=== PATIENT | female | born 1935 | race Caucasian/White ===

== ENCOUNTER → 2019-02-10 | Outpatient (CLI) | payer MEDICARE ==
[~2019-02-10] MED LIST: ASCO-262 PO; CALC-78 PO; MV-M1TAB57 PO; SERT25TA5 PO
[2019-02-10 10:51] LABS: BUN/CREATININE RATIO 18; CREATININE SERUM 0.73 MG/DL (0.60-1.30); GFR ESTIMATED > 60
--- NOTE | 2019-02-10 11:50 | NUR ---
SPO2 DROPPED TO 88% ON ROOM AIR WITH EXERTION. PLACED PT ON O2 @ 2 LPM AND WALKED FOR 2 MORE MINUTES. SPO2 STAYED ABOVE 90% WITH OXYGEN.
[2019-02-10 11:53] LABS: ABG BASE EXCESS 3.2 MMOL/L (-2.5-2.5); ABG OXYGEN SATURATION 95 % (94-100); ABG PCO2 40 MMHG (35-45); ABG PH 7.44 (7.37-7.43); ABG PO2 68 MMHG (79-93); ABG TCO2 28.7 MMOL/L (21.0-31.0)
[2019-02-10 12:00] LABS: ALLENS TEST YES-POS; INSPIRED O2 0; PATIENT TEMP 95.9; VENTILATOR NO
== END ==
LOC: RT 10:20
PROVIDERS: ATTEND Nurse Practitioner Family
DX: R06.00 Dyspnea, unspecified (principal); J30.9 Allergic rhinitis, unspecified; R06.89 Other abnormalities of breathing; R05 Cough; R91.8 Other nonspecific abnormal finding of lung field; R63.4 Abnormal weight loss
CPT/HCPCS: 36415; 36600; 82565; 82805; 84520

== ENCOUNTER → 2019-02-10 | Outpatient (CLI) | payer MEDICARE ==
[~2019-02-10] MED LIST changes: -ASCO-262 PO; -CALC-78 PO; +HOLD METFORMIN - RECEIVED CONTRAST 20 ML VIAL IV SCH; +IOHEXOL 350 MG/ML 100 ML (OMNIPAQUE 350) VIAL IV ONE; -MV-M1TAB57 PO; -SERT25TA5 PO
--- NOTE | 2019-02-10 14:45 | Diagnostic Imaging Report ---
PROCEDURE: CT chest with contrast only. TECHNIQUE: Multiple contiguous axial images were obtained through the chest after administration of intravenous contrast. Auto Exposure Controls were utilized during the CT exam to meet ALARA standards for radiation dose reduction. INDICATION: Dyspnea, cough and shortness of air. COMPARISON: No prior studies are available for comparison. FINDINGS: No axillary lymphadenopathy is seen. No definite hilar or mediastinal lymphadenopathy is detected. No pericardial or pleural fluid is identified. There are centrilobular emphysematous changes in the upper lobes. There is a small density in the medial left upper lobe, image 20, measuring approximately 10 mm x 5 mm. Circumscribed noncalcified nodule in the left lower lobe is noted, image 28, measuring 13 mm. Tiny nodule in the lingula is seen measuring 5 mm. No other parenchymal nodules are identified. Upper abdomen does show low density in the left lobe of the liver measuring 14 mm. Upper abdomen is otherwise unremarkable. Thoracic spine does show several compression fracture deformities in the mid thoracic spine, age indeterminate. IMPRESSION: 1. No thoracic lymphadenopathy is detected. 2. Centrilobular emphysematous changes. 3. Nodular densities, largest left lower lobe, indeterminate. PET scan to evaluate the left lower lobe nodule would be useful for further evaluation. If no additional imaging is performed, close followup with repeat study in three to six months is recommended to confirm stability. Dictated by: Dictated on workstation # [id number]
== END ==
LOC: RAD 13:37 → EDUNIT# 14:45
PROVIDERS: ATTEND Nurse Practitioner Family
DX: J43.2 Centrilobular emphysema (principal); J30.9 Allergic rhinitis, unspecified; J98.4 Other disorders of lung; R63.4 Abnormal weight loss
CPT/HCPCS: 71260

== ENCOUNTER 2019-02-17 07:01 | Outpatient (CLI) | payer MEDICARE ==
[~2019-02-17] VITALS: Ht 157.5 cm; Wt 59.0 kg
[2019-02-17] MEDS ORDERED: MV-M1TAB57 PO (12:13)
[2019-02-17] MEDS ORDERED: SERT25TA5 PO (12:13)
[2019-02-17] MEDS ORDERED: CALC-78 PO (12:13)
[2019-02-17] MEDS ORDERED: ASCO-262 PO (12:13)
== END 2019-02-17 12:15 | disposition home or self-care (01) ==
LOC: PREOP 07:01
PROVIDERS: ATTEND Internal Medicine Critical Care Medicine
DX: Z01.818 Encounter for other preprocedural examination (principal)

== ENCOUNTER 2019-02-19 06:46 | Day surgery (SDC) | payer MEDICARE ==
[~2019-02-19] VITALS: Ht 157.5 cm; Wt 59.0 kg
[~2019-02-19 06:46] MED LIST changes: +ASCO-262 PO; +CALC-78 PO; -HOLD METFORMIN - RECEIVED CONTRAST 20 ML VIAL IV SCH; -IOHEXOL 350 MG/ML 100 ML (OMNIPAQUE 350) VIAL IV ONE; +MV-M1TAB57 PO; +SERT25TA5 PO
[2019-02-19] MEDS ORDERED: LIDOCAINE PF 1% 2 ML VIAL IJ ONE (06:47)
[2019-02-19] MEDS ORDERED: LIDOCAINE PF 2% 5 ML (XYLOCAINE) VIAL INJ ONE (06:47)
[2019-02-19] MEDS ORDERED: LACTATED RINGERS 1,000 ML IV ONE (07:04)
--- OUTSIDE RECORDS SUMMARY | 2019-02-19 07:23 | XMS REPORT ---
Author Author NATALEE DÍAZ Organization [facility] [address] Address [address] [place] [address] Care Team Providers Care Recreational Assistant Name Role Phone PAIGENATALEE MCRAE Unavailable PROBLEMS Type Condition ICD9-CM Code RUY42-OH Code Onset Dates Condition Status SNOMED Code Problem Urge incontinence N39.41 Active 28519938 Problem Anxiety F41.9 Active 46498491 Problem Reactive depression F32.9 Active 30544231 Problem Encounter for immunization Z23 Active 309364420 Problem Mild episode of recurrent major depressive disorder F33.0 Active 085153352 Problem Age-related osteoporosis without current pathological fracture M81.0 Active 98329061 Problem Primary insomnia F51.01 Active 3108884 Problem Seasonal allergic rhinitis due to pollen J30.1 Active 64175173 Problem GERD without esophagitis K21.9 Active 862058587 Problem Bilateral hearing loss, unspecified hearing loss type H91.93 Active 57786988 ALLERGIES Substance Reaction Event Type Date Status Trimethoprim-Sulfamethoxazole hives Drug Allergy Aug, Active sulfa Unknown Non Drug Allergy Aug, Active ENCOUNTERS Encounter Location Date Diagnosis [facility] [address] [place] [address] Aug, Medicare annual wellness visit, initial Z00.00 ; Mild episode of recurrent major depressive disorder F33.0 ; Anxiety F41.9 ; Age-related osteoporosis without current pathological fracture M81.0 ; GERD without esophagitis K21.9 ; Bilateral hearing loss, unspecified hearing loss type H91.93 ; Screening for breast cancer Z12.31 and Urge incontinence N39.41 [facility] [address] [place] [address] Mar, [facility] [address] [place] [address] Mar, Mild episode of recurrent major depressive disorder F33.0 and Ear lesion H93.[address] [address] Dec, [address] [address] Dec, Shortness of breath R06.02 and Chest pain, unspecified type R07.[address] [address] Dec, [address] [address] Dec, [address] [address] Nov, Dental examination Z01.[address] [address] 07 Aug, 2017 Breast mass N63.0 and Age-related osteoporosis without current pathological fracture M81.[address] [address] Aug, Traumatic injury of head, initial encounter S09.90XA ; Facial skin lesion L98.9 ; Primary insomnia F51.01 ; Post-menopausal Z78.0 ; GERD without esophagitis K21.9 ; Bilateral hearing loss, unspecified hearing loss type H91.93 ; Screening for breast cancer Z12.31 and Encounter for immunization Z23 [address] [address] 09 Aug, [address] [address] Jul, Primary insomnia F51.[address] [address] May, Acute non-recurrent maxillary sinusitis J01.00 ; Anxiety F41.9 and Primary insomnia F51.[address] [address] Mar, [address] [address] Nov, Prehypertension R03.0 and Hyperkalemia E87.[address] [address] Nov, Hyperkalemia E87.[address] [address] Nov, Prehypertension R03.0 ; Anxiety F41.9 ; Urge incontinence N39.41 and Seborrhea L21.[address] [address] 17 Nov, 2016 Dyspnea R06.00 and Prehypertension R03.[address] [address] 16 Nov, 2016 Dyspnea R06.00 ; Primary insomnia F51.01 and Prehypertension R03.[address] [address] Oct, Prehypertension R03.0 ; Anxiety F41.9 ; Seasonal allergic rhinitis due to pollen J30.1 ; Screening for breast cancer Z12.39 ; Urge incontinence N39.41 ; Seborrhea L21.9 and Encounter for immunization Z23 [address] [address] Aug, Vertigo R42 [address] [address] Aug, Acute non-recurrent frontal sinusitis J01.[address] [address] Jul, Subacute maxillary sinusitis J01.[address] [address] Jun, Anxiety F41.[address] [address] 08 Jun, 2016 Anxiety F41.9 ; Incontinence R32 ; Primary insomnia F51.01 and Screening for breast cancer Z12.[address] [address] Dec, Chest pain, unspecified type R07.[address] [address] 14 Nov, [facility] [address] [place] [address] Nov, Reactive depression F32.9 ; Urge incontinence N39.41 and Allergic rhinitis, unspecified allergic rhinitis type J30.9 [facility] [address] [place] [address] Nov, [facility] [address] [place] [address] Nov, [facility] [address] [place] [address] Nov, [facility] [address] [place] [address] Nov, Reactive depression F32.9 ; Urge incontinence N39.41 ; Acute frontal sinusitis, recurrence not specified J01.10 and Cystitis N30.90 [facility] [address] [place] [address] Oct, Reactive depression F32.9 and Finger tendinitis M77.9 [facility] [address] [place] [address] Aug, [address] [address] Aug, Bronchitis J40 and Wheezing R06.[address] [address] Aug, Dyspnea R06.00 and Abdominal pain R10.[address] [address] Jul, Rib pain on right side R07.81 ; Depression F32.9 and Encounter for immunization Z23 [address] [address] Jun, [address] [place] [address] Jun, [address] [address] May, [place] [id number] [place] [address] May, IMMUNIZATIONS No Known Immunizations SOCIAL HISTORY Never Assessed REASON FOR VISIT Medicare AWV - [facility] Activity Details Follow Up 1 Year Reason:AWV VITAL SIGNS Height 63 in 2018-09-02 Weight 135.8 lbs 2018-09-02 Temperature 97.5 degrees Fahrenheit 2018-09-02 Heart Rate 85 bpm 2018-09-02 Respiratory Rate 18 2018-09-02 BMI 24.05 kg/m2 2018-09-02 Blood pressure systolic 122 mmHg 2018-09-02 Blood pressure diastolic 74 mmHg 2018-09-02 MEDICATIONS Medication Instructions Dosage Frequency Start Date End Date Duration Status Multivitamin Adult - Active Zoloft 50 mg 1 tablet Once a day Orally 30 day(s) 90 days Active Zoloft 25 MG 1 tablet Once a day Orally 30 day(s) 90 Active Ketoconazole 1 % Externally Twice a day. Lather on and rinse off 10 minutes later 1 application to scalp as needed 14 days Active Flonase Allergy Relief 50 MCG/ACT Nasally Once a day 1 spray in each nostril 24h Oct, 30 day(s) Active Anoro Ellipta 62.5-25 MCG/INH Inhalation Once a day 1 puff 24h Dec, Active Calcium + D3 600-800 MG-UNIT Orally 2 times a day 1 tablet with a meal 12h Active Fosamax 70 MG Orally once weekly in the morning with an 8 oz glass of water. No eating, lying down for 30 minutes. once weekly 1 tablet Aug, Active Stool Softener 100 MG Orally Once a day 1 capsule as needed 24h Active Pepcid 40 mg Orally Once a day 1 tablet 24h Aug, 30 day(s) Active VESIcare 10 MG TAKE ONE TABLET BY MOUTH ONCE DAILY 30 Active Multivitamin Adults 50+ Active Remeron 15 MG Orally Once a day 1 tablet at bedtime 24h Mar, 30 day(s) Active RESULTS No Results PROCEDURES Procedure Date Ordered Result Body Site ADVNCD CARE PLAN 30 MIN Sep 02, 2018 [facility] VISIT IPPE/AWV Sep 02, 2018 ANNUAL SHENG VST; DARRIN PPS INIT Sep 02, 2018 INSTRUCTIONS MEDICATIONS ADMINISTERED No Known Medications MEDICAL (GENERAL) HISTORY Type Description Date Medical History Reactive depression Medical History Urge incontinence Surgical History cholecystectomy Surgical History intubated Surgical History hysterectomy Surgical History right ankle had plate and pin Surgical History gall bladder Hospitalization History Stomach Issues 2016 Hospitalization History Surgery(s)/Childbirth(s)
--- OUTSIDE RECORDS SUMMARY | 2019-02-19 07:23 | XMS REPORT ---
Author Author CORNELIUS POLLACK [facility] [address] Address [address] [place] [address] Care Team Providers Care Shell Coremaker Name Role Phone CORNELIUS POLLACK Unavailable PROBLEMS Type Condition ICD9-CM Code IIA02-RM Code Onset Dates Condition Status SNOMED Code Problem Urge incontinence N39.41 Active 98681237 Problem Anxiety F41.9 Active 96788489 Problem Reactive depression F32.9 Active 85465040 Problem Encounter for immunization Z23 Active 287685619 Problem Mild episode of recurrent major depressive disorder F33.0 Active 305378000 Problem Age-related osteoporosis without current pathological fracture M81.0 Active 79972977 Problem Primary insomnia F51.01 Active 8722412 Problem Seasonal allergic rhinitis due to pollen J30.1 Active 61081874 Problem GERD without esophagitis K21.9 Active 703708567 Problem Bilateral hearing loss, unspecified hearing loss type H91.93 Active 07823710 ALLERGIES No Information ENCOUNTERS Encounter Location Date Diagnosis [facility] [address] [place] [address] Mar, [facility] [address] [place] [address] Mar, Mild episode of recurrent major depressive disorder F33.0 and Ear lesion H93.90 [facility] [address] [place] [address] Dec, [facility] [address] [place] [address] Dec, Shortness of breath R06.02 and Chest pain, unspecified type R07.9 [facility] [address] [place] [address] Dec, [facility] [address] [place] [address] Dec, [facility] [address] [place] [address] Nov, Dental examination Z01.[address] [address] 07 Aug, 2017 Breast mass N63.0 and Age-related osteoporosis without current pathological fracture M81.[address] [address] 27 Aug, 2017 Traumatic injury of head, initial encounter S09.90XA ; Facial skin lesion L98.9 ; Primary insomnia F51.01 ; Post-menopausal Z78.0 ; GERD without esophagitis K21.9 ; Bilateral hearing loss, unspecified hearing loss type H91.93 ; Screening for breast cancer Z12.31 and Encounter for immunization Z23 [address] [address] 09 Aug, [address] [address] Jul, Primary insomnia F51.[address] [address] May, Acute non-recurrent maxillary sinusitis J01.00 ; Anxiety F41.9 and Primary insomnia F51.[address] [address] Mar, [address] [address] Nov, Prehypertension R03.0 and Hyperkalemia E87.[address] [address] Nov, Hyperkalemia E87.[address] [address] Nov, Prehypertension R03.0 ; Anxiety F41.9 ; Urge incontinence N39.41 and Seborrhea L21.[address] [address] Nov, Dyspnea R06.00 and Prehypertension R03.[address] [address] Nov, Dyspnea R06.00 ; Primary insomnia F51.01 and [facility]hypertension R03.0 [facility] [place] [address] [place] [address] Oct, Prehypertension R03.0 ; Anxiety F41.9 ; Seasonal allergic rhinitis due to pollen J30.1 ; Screening for breast cancer Z12.39 ; Urge incontinence N39.41 ; Seborrhea L21.9 and Encounter for immunization Z23 [address] [address] Aug, Vertigo R42 [address] [address] Aug, Acute non-recurrent frontal sinusitis J01.[address] [address] Jul, Subacute maxillary sinusitis J01.[address] [address] Jun, Anxiety F41.[address] [address] Jun, Anxiety F41.9 ; Incontinence R32 ; Primary insomnia F51.01 and Screening for breast cancer Z12.[address] [address] Dec, Chest pain, unspecified type R07.[address] [address] Nov, [address] [address] Nov, Reactive depression F32.9 ; Urge incontinence N39.41 and Allergic rhinitis, unspecified allergic rhinitis type J30.[address] [address] Nov, [address] [address] Nov, [address] [address] Nov, [place] [id number] [place] [address] Nov, Reactive depression F32.9 ; Urge incontinence N39.41 ; Acute frontal sinusitis, recurrence not specified J01.10 and Cystitis N30.90 [facility] [address] [address] Oct, Reactive depression F32.9 and Finger tendinitis M77.[address] [address] Aug, [facility] [address] [address] Aug, Bronchitis J40 and Wheezing R06.[address] [address] Aug, Dyspnea R06.00 and Abdominal pain R10.[address] [address] Jul, Rib pain on right side R07.81 ; Depression F32.9 and Encounter for immunization Z23 [address] [address] Jun, [address] [place] [address] Jun, [facility] [address] [address] May, [address] [place] [address] May, IMMUNIZATIONS No Known Immunizations SOCIAL HISTORY Never Assessed REASON FOR VISIT FA PLAN OF CARE VITAL SIGNS MEDICATIONS Unknown Medications RESULTS No Results PROCEDURES No Known procedures INSTRUCTIONS MEDICATIONS ADMINISTERED No Known Medications MEDICAL (GENERAL) HISTORY Type Description Date Medical History Reactive depression Medical History Urge incontinence Surgical History cholecystectomy Surgical History intubated Surgical History hysterectomy Surgical History right ankle had plate and pin Surgical History gall bladder Hospitalization History Stomach Issues 2016 Hospitalization History Surgery(s)/Childbirth(s)
--- OUTSIDE RECORDS SUMMARY | 2019-02-19 07:23 | XMS REPORT ---
Author Author NATALEE DÍAZ Organization [facility] [address] Address [address] [place] [address] Care Team Providers Care Line Maintainer Name Role Phone PAIGENATALEE MCRAE Unavailable PROBLEMS Type Condition ICD9-CM Code AVL54-TQ Code Onset Dates Condition Status SNOMED Code Problem Urge incontinence N39.41 Active 24592930 Problem Anxiety F41.9 Active 03388879 Problem Reactive depression F32.9 Active 07091709 Problem Encounter for immunization Z23 Active 563052573 Problem Mild episode of recurrent major depressive disorder F33.0 Active 168620931 Problem Age-related osteoporosis without current pathological fracture M81.0 Active 44043281 Problem Primary insomnia F51.01 Active 0162902 Problem Seasonal allergic rhinitis due to pollen J30.1 Active 95591886 Problem GERD without esophagitis K21.9 Active 230875628 Problem Bilateral hearing loss, unspecified hearing loss type H91.93 Active 96333998 ALLERGIES Substance Reaction Event Type Date Status Trimethoprim-Sulfamethoxazole hives Drug Allergy Mar, Active sulfa Unknown Non Drug Allergy Mar, Active ENCOUNTERS Encounter Location Date Diagnosis [facility] [address] [place] [address] Mar, [facility] [address] [place] [address] Mar, Mild episode of recurrent major depressive disorder F33.0 and Ear lesion H93.90 [facility] [address] [place] [address] Dec, [facility] [address] [place] [address] Dec, Shortness of breath R06.02 and Chest pain, unspecified type R07.9 [facility] [address] [place] [address] Dec, [facility] [address] [place] [address] Dec, [address] [address] Nov, Dental examination Z01.[address] [address] 07 Aug, 2017 Breast mass N63.0 and Age-related osteoporosis without current pathological fracture M81.[address] [address] 27 Aug, 2017 Traumatic injury of head, initial encounter S09.90XA ; Facial skin lesion L98.9 ; Primary insomnia F51.01 ; Post-menopausal Z78.0 ; GERD without esophagitis K21.9 ; Bilateral hearing loss, unspecified hearing loss type H91.93 ; Screening for breast cancer Z12.31 and Encounter for immunization Z23 [address] [address] 09 Aug, [address] [address] Jul, Primary insomnia F51.[address] [address] May, Acute non-recurrent maxillary sinusitis J01.00 ; Anxiety F41.9 and Primary insomnia F51.[address] [address] Mar, [address] [address] Nov, Hyperkalemia E87.5 and Prehypertension R03.[address] [address] Nov, Hyperkalemia E87.[address] [address] Nov, Prehypertension R03.0 ; Anxiety F41.9 ; Urge incontinence N39.41 and Seborrhea L21.[address] [address] Nov, Dyspnea R06.00 and Prehypertension R03.[address] [address] 16 Nov, 2016 Dyspnea R06.00 ; Primary insomnia F51.01 and Prehypertension R03.[address] [address] Oct, Prehypertension R03.0 ; Anxiety F41.9 ; Seasonal allergic rhinitis due to pollen J30.1 ; Screening for breast cancer Z12.39 ; Urge incontinence N39.41 ; Seborrhea L21.9 and Encounter for immunization Z23 [address] [address] Aug, Vertigo R42 [address] [address] Aug, Acute non-recurrent frontal sinusitis J01.[address] [address] Jul, Subacute maxillary sinusitis J01.[address] [address] Jun, Anxiety F41.[address] [address] Jun, Anxiety F41.9 ; Incontinence R32 ; Primary insomnia F51.01 and Screening for breast cancer Z12.[address] [address] Dec, Chest pain, unspecified type R07.[address] [address] Nov, [address] [address] Nov, Reactive depression F32.9 ; Urge incontinence N39.41 and Allergic rhinitis, unspecified allergic rhinitis type J30.[address] [address] Nov, [address] [address] Nov, [address] [address] Nov, [address] [address] Nov, Reactive depression F32.9 ; Urge incontinence N39.41 ; Acute frontal sinusitis, recurrence not specified J01.10 and Cystitis N30.[address] [address] Oct, Reactive depression F32.9 and Finger tendinitis M77.[address] [address] Aug, [address] [address] Aug, Bronchitis J40 and Wheezing R06.[address] [address] Aug, Dyspnea R06.00 and Abdominal pain R10.[address] [address] Jul, Rib pain on right side R07.81 ; Depression F32.9 and Encounter for immunization Z23 [address] [address] Jun, [address] [place] [address] Jun, [address] [address] May, [address] [place] [address] May, IMMUNIZATIONS No Known Immunizations SOCIAL HISTORY Never Assessed REASON FOR VISIT Depression, not sleeping at night, also wants you to look at a spot on rt ear YISSEL norman PLAN OF CARE Activity Details Follow Up 2 Weeks Reason: VITAL SIGNS Height 63 in 2018-03-19 Weight 132.8 lbs 2018-03-19 Temperature 98.3 degrees Fahrenheit 2018-03-19 Heart Rate 81 bpm 2018-03-19 Respiratory Rate 18 2018-03-19 BMI 23.52 kg/m2 2018-03-19 Blood pressure systolic 142 mmHg 2018-03-19 Blood pressure diastolic 68 mmHg 2018-03-19 MEDICATIONS Medication Instructions Dosage Frequency Start Date End Date Duration Status VESIcare 10 MG TAKE ONE TABLET BY MOUTH ONCE DAILY 30 Active Anoro Ellipta 62.5-25 MCG/INH Inhalation Once a day 1 puff 24h Dec, Active Ketoconazole 1 % Externally Twice a day. Lather on and rinse off 10 minutes later 1 application to scalp as needed 14 days Active Multivitamin Adult - Active Remeron 15 MG Orally Once a day 1 tablet at bedtime 24h Mar, 30 day(s) Active Fosamax 70 MG Orally once weekly in the morning with an 8 oz glass of water. No eating, lying down for 30 minutes. once weekly 1 tablet Aug, Active Flonase Allergy Relief 50 MCG/ACT Nasally Once a day 1 spray in each nostril 24h Oct, 30 day(s) Active Stool Softener 100 MG Orally Once a day 1 capsule as needed 24h Active Pepcid 40 mg Orally Once a day 1 tablet 24h Aug, 30 day(s) Active Calcium + D3 600-200 MG-UNIT Active Multivitamin Adults 50+ Active RESULTS No Results PROCEDURES Procedure Date Ordered Result Body Site [facility] VISIT ESTABLISHED PATIENT March 19, 2018 INSTRUCTIONS MEDICATIONS ADMINISTERED No Known Medications MEDICAL (GENERAL) HISTORY Type Description Date Medical History Reactive depression Medical History Urge incontinence Surgical History cholecystectomy Surgical History intubated Surgical History hysterectomy Surgical History right ankle had plate and pin Surgical History gall bladder Hospitalization History Stomach Issues 2015 Hospitalization History Surgery(s)/Childbirth(s)
--- OUTSIDE RECORDS SUMMARY | 2019-02-19 07:24 | XMS REPORT ---
Author Author NATALEE DÍAZ Organization [facility] [address] Address [address] [place] [address] Care Team Providers Care Director Of Investigations Name Role Phone NATALEE DÍAZ Unavailable PROBLEMS Type Condition ICD9-CM Code CZF22-YC Code Onset Dates Condition Status SNOMED Code Problem Urge incontinence N39.41 Active 13158268 Problem Anxiety F41.9 Active 62921619 Problem Reactive depression F32.9 Active 62539581 Problem Encounter for immunization Z23 Active 773786819 Problem Mild episode of recurrent major depressive disorder F33.0 Active 607283690 Problem Age-related osteoporosis without current pathological fracture M81.0 Active 39304234 Problem Primary insomnia F51.01 Active 2267014 Problem Seasonal allergic rhinitis due to pollen J30.1 Active 94510519 Problem GERD without esophagitis K21.9 Active 631858848 Problem Bilateral hearing loss, unspecified hearing loss type H91.93 Active 65546517 ALLERGIES No Information ENCOUNTERS Encounter Location Date Diagnosis [facility] [address] [place] [address] Mar, [address] [address] Mar, Mild episode of recurrent major depressive disorder F33.0 and Ear lesion H93.90 [facility] [address] [place] [address] Dec, [facility] [address] [place] [address] Dec, Shortness of breath R06.02 and Chest pain, unspecified type R07.[address] [address] Dec, [facility] [address] [place] [address] Dec, [address] [address] 22 Mar, 2018 Dental examination Z01.[address] [address] 07 Aug, 2017 Breast mass N63.0 and Age-related osteoporosis without current pathological fracture M81.[address] [address] 27 Aug, 2017 Traumatic injury of head, initial encounter S09.90XA ; Facial skin lesion L98.9 ; Primary insomnia F51.01 ; Post-menopausal Z78.0 ; GERD without esophagitis K21.9 ; Bilateral hearing loss, unspecified hearing loss type H91.93 ; Screening for breast cancer Z12.31 and Encounter for immunization Z23 [address] [address] 09 Aug, [address] [address] Jul, Primary insomnia F51.[address] [address] May, Acute non-recurrent maxillary sinusitis J01.00 ; Anxiety F41.9 and Primary insomnia F51.[address] [address] Mar, [address] [address] Nov, Prehypertension R03.0 and Hyperkalemia E87.[address] [address] Nov, Hyperkalemia E87.[address] [address] Nov, Prehypertension R03.0 ; Anxiety F41.9 ; Urge incontinence N39.41 and Seborrhea L21.[address] [address] Nov, Dyspnea R06.00 and Prehypertension R03.[address] [address] 16 Nov, 2016 Dyspnea R06.00 ; Primary insomnia F51.01 and Prehypertension R03.[address] [address] Oct, Prehypertension R03.0 ; Anxiety F41.9 ; Seasonal allergic rhinitis due to pollen J30.1 ; Screening for breast cancer Z12.39 ; Urge incontinence N39.41 ; Seborrhea L21.9 and Encounter for immunization Z23 [address] [address] 08 Aug, 2016 [address]igo R[address] [address] Aug, Acute non-recurrent frontal sinusitis J01.[address] [address] Jul, Subacute maxillary sinusitis J01.[address] [address] Jun, Anxiety F41.[address] [address] 08 Jun, 2016 Anxiety F41.9 ; Incontinence R32 ; Primary insomnia F51.01 and Screening for breast cancer Z12.[address] [address] Dec, Chest pain, unspecified type R07.[address] [address] Nov, [address] [address] Nov, Reactive depression F32.9 ; Urge incontinence N39.41 and Allergic rhinitis, unspecified allergic rhinitis type J30.[address] [address] Nov, [address] [address] Nov, [address] [address] Nov, [address] [address] Nov, Reactive depression F32.9 ; Urge incontinence N39.41 ; Acute frontal sinusitis, recurrence not specified J01.10 and Cystitis N30.[address] [address] Oct, Reactive depression F32.9 and Finger tendinitis M77.[address] [address] Aug, [address] [address] Aug, Bronchitis J40 and Wheezing R06.[address] [address] Aug, Dyspnea R06.00 and Abdominal pain R10.[address] [address] Jul, Rib pain on right side R07.81 ; Depression F32.9 and Encounter for immunization Z23 [address] [address] Jun, [address] [place] [address] Jun, [address] [address] May, [address] [place] [address] May, IMMUNIZATIONS No Known Immunizations SOCIAL HISTORY Never Assessed REASON FOR VISIT Medication question PLAN OF CARE VITAL SIGNS MEDICATIONS Unknown [...]
--- OUTSIDE RECORDS SUMMARY | 2019-02-19 07:24 | XMS REPORT ---
Author Author NATALEE DÍAZ Organization [facility] [address] Address [address] [place] [address] Care Team Providers Care Loss Control Representative Name Role Phone PAIGENATALEE MCRAE Unavailable PROBLEMS Type Condition ICD9-CM Code WAY33-JS Code Onset Dates Condition Status SNOMED Code Problem Urge incontinence N39.41 Active 39372970 Problem Anxiety F41.9 Active 62023856 Problem Reactive depression F32.9 Active 76676280 Problem Encounter for immunization Z23 Active 317831758 Problem Mild episode of recurrent major depressive disorder F33.0 Active 725445523 Problem Age-related osteoporosis without current pathological fracture M81.0 Active 29889396 Problem Primary insomnia F51.01 Active 4185469 Problem Seasonal allergic rhinitis due to pollen J30.1 Active 08401155 Problem GERD without esophagitis K21.9 Active 973719484 Problem Bilateral hearing loss, unspecified hearing loss type H91.93 Active 22781871 ALLERGIES No Information ENCOUNTERS Encounter Location Date Diagnosis [address] [address] Mar, [address] [address] Mar, Mild episode of recurrent major depressive disorder F33.0 and Ear lesion H93.[address] [address] Dec, [address] [address] Dec, Shortness of breath R06.02 and Chest pain, unspecified type R07.[address] [address] Dec, [address] [address] Dec, [address] [address] Nov, Dental examination Z01.[address] [address] Aug, Breast mass N63.0 and Age-related osteoporosis without current pathological fracture M81.[address] [address] Aug, Traumatic injury of head, initial encounter S09.90XA ; Facial skin lesion L98.9 ; Primary insomnia F51.01 ; Post-menopausal Z78.0 ; GERD without esophagitis K21.9 ; Bilateral hearing loss, unspecified hearing loss type H91.93 ; Screening for breast cancer Z12.31 and Encounter for immunization Z23 [address] [address] Aug, [address] [address] Jul, Primary insomnia F51.[address] [address] May, Acute non-recurrent maxillary sinusitis J01.00 ; Anxiety F41.9 and Primary insomnia F51.[address] [address] Mar, [address] [address] Nov, Prehypertension R03.0 and Hyperkalemia E87.[address] [address] Nov, Hyperkalemia E87.[address] [address] Nov, Prehypertension R03.0 ; Anxiety F41.9 ; Urge incontinence N39.41 and Seborrhea L21.[address] [address] Nov, Dyspnea R06.00 and Prehypertension R03.[address] [address] Nov, Dyspnea R06.00 ; Primary insomnia F51.01 and Prehypertension R03.[address] [address] Oct, Prehypertension R03.0 ; Anxiety F41.9 ; Seasonal allergic rhinitis due to pollen J30.1 ; Screening for breast cancer Z12.39 ; Urge incontinence N39.41 ; Seborrhea L21.9 and Encounter for immunization Z23 [address] [address] 08 Aug, 2016 Vertigo R42 [address] [address] 03 Aug, 2016 Acute non-recurrent frontal sinusitis J01.[address] [address] Jul, Subacute maxillary sinusitis J01.[address] [address] Jun, Anxiety F41.[address] [address] 08 Jun, 2016 Anxiety F41.9 ; Incontinence R32 ; Primary insomnia F51.01 and Screening for breast cancer Z12.[address] [address] Dec, Chest pain, unspecified type R07.[address] [address] Nov, [address] [address] Nov, Reactive depression F32.9 ; Urge incontinence N39.41 and Allergic rhinitis, unspecified allergic rhinitis type J30.[address] [address] 24 Nov, [address] [address] 16 Nov, [address] [address] 15 Nov, [address] [address] Nov, Reactive depression F32.9 ; Urge incontinence N39.41 ; Acute frontal sinusitis, recurrence not specified J01.10 and Cystitis N30.[address] [address] Oct, Reactive depression F32.9 and Finger tendinitis M77.[address] [address] Aug, [address] [address] Aug, Bronchitis J40 and Wheezing R06.[address] [address] Aug, Dyspnea R06.00 and Abdominal pain R10.[address] [address] Jul, Rib pain on right side R07.81 ; Depression F32.9 and Encounter for immunization Z23 [address] [address] Jun, [facility] [address] [address] Jun, [address] [address] May, [facility] [address] [address] May, IMMUNIZATIONS No Known Immunizations SOCIAL HISTORY Never Assessed REASON FOR VISIT Requests return call PLAN OF CARE VITAL SIGNS MEDICATIONS Unknown [...]
--- OUTSIDE RECORDS SUMMARY | 2019-02-19 07:24 | XMS REPORT ---
Author Author ENRIQUE HERNANDEZ [facility] Address [address] [place] [address] Care Team Providers Care Manager Lighting Name Role Phone ENRIQUE HERNANDEZ Unavailable PROBLEMS Type Condition ICD9-CM Code KSW25-MR Code Onset Dates Condition Status SNOMED Code Problem Urge incontinence N39.41 Active 73259303 Problem Anxiety F41.9 Active 43357340 Problem Reactive depression F32.9 Active 21121042 Problem Encounter for immunization Z23 Active 810996388 Problem Mild episode of recurrent major depressive disorder F33.0 Active 898464071 Problem Age-related osteoporosis without current pathological fracture M81.0 Active 22947057 Problem Primary insomnia F51.01 Active 8818625 Problem Seasonal allergic rhinitis due to pollen J30.1 Active 42182118 Problem GERD without esophagitis K21.9 Active 828221926 Problem Bilateral hearing loss, unspecified hearing loss type H91.93 Active 76755395 ALLERGIES Substance Reaction Event Type Date Status Trimethoprim-Sulfamethoxazole hives Drug Allergy Nov, Active sulfa Unknown Non Drug Allergy Nov, Active ENCOUNTERS Encounter Location Date Diagnosis [facility] [address] [address] Mar, [facility] [address] [address] Mar, Mild episode of recurrent major depressive disorder F33.0 and Ear lesion H93.90 [facility] [address] [address] Dec, [facility] [address] [place] [address] Dec, Shortness of breath R06.02 and Chest pain, unspecified type R07.[address] [address] Dec, [address] [address] Dec, [address] [address] Nov, Dental examination Z01.[address] [address] 07 Aug, 2017 Breast mass N63.0 and Age-related osteoporosis without current pathological fracture M81.[address] [address] 27 Aug, 2017 Traumatic injury of head, initial encounter S09.90XA ; Facial skin lesion L98.9 ; Primary insomnia F51.01 ; Post-menopausal Z78.0 ; GERD without esophagitis K21.9 ; Bilateral hearing loss, unspecified hearing loss type H91.93 ; Screening for breast cancer Z12.31 and Encounter for immunization Z23 [address] [address] 09 Aug, [address] [address] Jul, Primary insomnia F51.[address] [address] May, Acute non-recurrent maxillary sinusitis J01.00 ; Anxiety F41.9 and Primary insomnia F51.[address] [address] Mar, [address] [address] Nov, Hyperkalemia E87.5 and Prehypertension R03.[address] [address] Nov, Hyperkalemia E87.[address] [address] Nov, Prehypertension R03.0 ; Anxiety F41.9 ; Urge incontinence N39.41 and Seborrhea L21.[address] [address] Nov, Dyspnea R06.00 and Prehypertension R03.[address] [address] 16 Nov, 2016 Dyspnea R06.00 ; Primary insomnia F51.01 and Prehypertension R03.[address] [address] Oct, Prehypertension R03.0 ; Anxiety F41.9 ; Seasonal allergic rhinitis due to pollen J30.1 ; Screening for breast cancer Z12.39 ; Urge incontinence N39.41 ; Seborrhea L21.9 and Encounter for immunization Z23 [address] [address] Aug, Vertigo R42 [address] [address] Aug, Acute non-recurrent frontal sinusitis J01.[address] [address] Jul, Subacute maxillary sinusitis J01.[address] [address] Jun, Anxiety F41.[address] [address] Jun, Anxiety F41.9 ; Incontinence R32 ; Primary insomnia F51.01 and Screening for breast cancer Z12.[address] [address] Dec, Chest pain, unspecified type R07.[address] [address] Nov, [address] [address] Nov, Reactive depression F32.9 ; Urge incontinence N39.41 and Allergic rhinitis, unspecified allergic rhinitis type J30.[address] [address] Nov, [address] [address] Nov, [address] [address] Nov, [address] [address] Nov, Reactive depression F32.9 ; Urge incontinence N39.41 ; Acute frontal sinusitis, recurrence not specified J01.10 and Cystitis N30.[address] [address] Oct, Reactive depression F32.9 and Finger tendinitis M77.[address] [address] Aug, [address] [address] Aug, Bronchitis J40 and Wheezing R06.[address] [address] Aug, Dyspnea R06.00 and Abdominal pain R10.[address] [address] Jul, Rib pain on right side R07.81 ; Depression F32.9 and Encounter for immunization Z23 [address] [address] Jun, [facility] [address] [place] [address] Jun, [address] [address] May, [facility] [address] [place] [address] May, IMMUNIZATIONS No Known Immunizations SOCIAL HISTORY Never Assessed REASON FOR VISIT ADITI PLAN OF CARE Activity Details Follow Up #29 DO and prophy Reason: VITAL SIGNS Blood pressure systolic 137 mmHg 2017-12-20 Blood pressure diastolic 74 mmHg 2017-12-20 MEDICATIONS Medication Instructions Dosage Frequency Start Date End Date Duration Status Trazodone HCl 50 mg 1 tablet at bedtime as needed Once a day Orally 60 days 60 Active Lunesta 2 MG Orally Once a day 1 tablet immediately before bedtime 24h Jul, 30 days Active Zoloft 25 MG Orally Once a day 1 tablet 24h 30 day(s) Active Calcium + D3 600-200 MG-UNIT Active Stool Softener 100 MG Orally Once a day 1 capsule as needed 24h Active Multivitamin Adults 50+ Active Pepcid 40 mg Orally Once a day 1 tablet 24h Aug, 30 day(s) Active Ketoconazole 1 % Externally Twice a day. Lather on and rinse off 10 minutes later 1 application to scalp as needed 14 days Active Fosamax 70 MG Orally once weekly in the morning with an 8 oz glass of water. No eating, lying down for 30 minutes. once weekly 1 tablet Aug, Active VESIcare 10 mg Orally Once a day 1 tablet 24h 90 Active Flonase Allergy Relief 50 MCG/ACT Nasally Once a day 1 spray in each nostril 24h 30 Oct, 2016 30 day(s) Active Multivitamin Adult - Active RESULTS No Results PROCEDURES Procedure Date Ordered Result Body Site COMP ORAL EVALUATION - NEW/EST PT December 20, 2017 BITEWINGS - FOUR FILMS December 20, 2017 PANORAMIC FILM SEE ALSO CODE 40924 December 20, 2017 INSTRUCTIONS MEDICATIONS ADMINISTERED No Known Medications MEDICAL (GENERAL) HISTORY Type Description Date Medical History Reactive depression Medical History Urge incontinence Surgical History cholecystectomy Surgical History intubated Surgical History hysterectomy Surgical History right ankle had plate and pin Surgical History gall bladder Hospitalization History Stomach Issues 2015 Hospitalization History Surgery(s)/Childbirth(s)
--- OUTSIDE RECORDS SUMMARY | 2019-02-19 07:24 | XMS REPORT ---
Author Author NATALEE DÍAZ Organization [facility] [address] Address [address] [place] [address] Care Team Providers Care Ventilating Equipment Installer Name Role Phone PAIGENATALEE MCRAE Unavailable PROBLEMS Type Condition ICD9-CM Code FJI61-DF Code Onset Dates Condition Status SNOMED Code Problem Urge incontinence N39.41 Active 10545808 Problem Anxiety F41.9 Active 19441501 Problem Reactive depression F32.9 Active 97668726 Problem Encounter for immunization Z23 Active 054787589 Problem Mild episode of recurrent major depressive disorder F33.0 Active 802651795 Problem Age-related osteoporosis without current pathological fracture M81.0 Active 65317669 Problem Primary insomnia F51.01 Active 0570019 Problem Seasonal allergic rhinitis due to pollen J30.1 Active 10353336 Problem GERD without esophagitis K21.9 Active 679076152 Problem Bilateral hearing loss, unspecified hearing loss type H91.93 Active 86315910 ALLERGIES No Information ENCOUNTERS Encounter Location Date Diagnosis [address] [address] Mar, [address] [address] Mar, Mild episode of recurrent major depressive disorder F33.0 and Ear lesion H93.[address] [address] Dec, [address] [address] Dec, Shortness of breath R06.02 and Chest pain, unspecified type R07.[address] [address] Dec, [address] [address] Dec, [address] [address] Nov, Dental examination Z01.[address] [address] Aug, Breast mass N63.0 and Age-related osteoporosis without current pathological fracture M81.[address] [address] Aug, Traumatic injury of head, initial encounter S09.90XA ; Facial skin lesion L98.9 ; Primary insomnia F51.01 ; Post-menopausal Z78.0 ; GERD without esophagitis K21.9 ; Bilateral hearing loss, unspecified hearing loss type H91.93 ; Screening for breast cancer Z12.31 and Encounter for immunization Z23 [address] [address] Aug, [address] [address] Jul, Primary insomnia F51.[address] [address] May, Acute non-recurrent maxillary sinusitis J01.00 ; Anxiety F41.9 and Primary insomnia F51.[address] [address] Mar, [address] [address] Nov, Prehypertension R03.0 and Hyperkalemia E87.[address] [address] Nov, Hyperkalemia E87.[address] [address] Nov, Prehypertension R03.0 ; Anxiety F41.9 ; Urge incontinence N39.41 and Seborrhea L21.[address] [address] Nov, Dyspnea R06.00 and Prehypertension R03.[address] [address] Nov, Dyspnea R06.00 ; Primary insomnia F51.01 and Prehypertension R03.[address] [address] Oct, Prehypertension R03.0 ; Anxiety F41.9 ; Seasonal allergic rhinitis due to pollen J30.1 ; Screening for breast cancer Z12.39 ; Urge incontinence N39.41 ; Seborrhea L21.9 and Encounter for immunization Z23 [address] [address] 08 Aug, 2016 Vertigo R42 [address] [address] 03 Aug, 2016 Acute non-recurrent frontal sinusitis J01.[address] [address] Jul, Subacute maxillary sinusitis J01.[address] [address] Jun, Anxiety F41.[address] [address] 08 Jun, 2016 Anxiety F41.9 ; Incontinence R32 ; Primary insomnia F51.01 and Screening for breast cancer Z12.[address] [address] Dec, Chest pain, unspecified type R07.[address] [address] Nov, [address] [address] Nov, Reactive depression F32.9 ; Urge incontinence N39.41 and Allergic rhinitis, unspecified allergic rhinitis type J30.[address] [address] 24 Nov, [address] [address] 16 Nov, [address] [address] 15 Nov, [address] [address] Nov, Reactive depression F32.9 ; Urge incontinence N39.41 ; Acute frontal sinusitis, recurrence not specified J01.10 and Cystitis N30.[address] [address] Oct, Reactive depression F32.9 and Finger tendinitis M77.[address] [address] Aug, [address] [address] Aug, Bronchitis J40 and Wheezing R06.[address] [address] Aug, Dyspnea R06.00 and Abdominal pain R10.[address] [address] Jul, Rib pain on right side R07.81 ; Depression F32.9 and Encounter for immunization Z23 [address] [address] Jun, [facility] [address] [place] [address] Jun, [address] [address] May, [facility] [address] [place] [address] May, IMMUNIZATIONS No Known Immunizations SOCIAL HISTORY Never Assessed REASON FOR VISIT PLAN OF CARE VITAL SIGNS MEDICATIONS Unknown [...]
--- OUTSIDE RECORDS SUMMARY | 2019-02-19 07:24 | XMS REPORT ---
Author Author NATALEE DÍAZ Organization [facility] [address] Address [address] [place] [address] Care Team Providers Care Automation Tech Name Role Phone PAIGENATALEE MCRAE Unavailable PROBLEMS Type Condition ICD9-CM Code [id number] Code Onset Dates Condition Status SNOMED Code Problem Urge incontinence N39.41 Active 85252232 Problem Anxiety F41.9 Active 81014731 Problem Reactive depression F32.9 Active 14536485 Problem Encounter for immunization Z23 Active 933498178 Problem Mild episode of recurrent major depressive disorder F33.0 Active 701828522 Problem Age-related osteoporosis without current pathological fracture M81.0 Active 53231839 Problem Primary insomnia F51.01 Active 3113386 Problem Seasonal allergic rhinitis due to pollen J30.1 Active 59555675 Problem GERD without esophagitis K21.9 Active 884434136 Problem Bilateral hearing loss, unspecified hearing loss type H91.93 Active 06010569 ALLERGIES Substance Reaction Event Type Date Status Trimethoprim-Sulfamethoxazole hives Drug Allergy Dec, Active sulfa Unknown Non Drug Allergy Dec, Active ENCOUNTERS Encounter Location Date Diagnosis [address] [address] Mar, [facility] [place] [address] [place] [phone] Mar, Mild episode of recurrent major depressive disorder F33.0 and Ear lesion H93.90 [facility] [place] [address] [place] [address] Dec, [facility] [place] [address] [place] [address] Dec, Shortness of breath R06.02 and Chest pain, unspecified type R07.[address] [address] Dec, [facility] [address] [place] [phone] Dec, [address] [address] Nov, Dental examination Z01.[address] [address] 07 Aug, 2017 Breast mass N63.0 and Age-related osteoporosis without current pathological fracture M81.[address] [address] Aug, Traumatic injury of head, initial encounter S09.90XA ; Facial skin lesion L98.9 ; Primary insomnia F51.01 ; Post-menopausal Z78.0 ; GERD without esophagitis K21.9 ; Bilateral hearing loss, unspecified hearing loss type H91.93 ; Screening for breast cancer Z12.31 and Encounter for immunization Z23 [address] [address] Aug, [address] [address] Jul, Primary insomnia F51.[address] [address] May, Acute non-recurrent maxillary sinusitis J01.00 ; Anxiety F41.9 and Primary insomnia F51.[address] [address] Mar, [address] [address] Nov, Hyperkalemia E87.5 and Prehypertension R03.[address] [address] Nov, Hyperkalemia E87.[address] [address] Nov, Prehypertension R03.0 ; Anxiety F41.9 ; Urge incontinence N39.41 and Seborrhea L21.[address] [address] Nov, Dyspnea R06.00 and Prehypertension R03.[address] [address] 16 Nov, 2016 Dyspnea R06.00 ; Primary insomnia F51.01 and Prehypertension R03.[address] [address] Oct, Prehypertension R03.0 ; Anxiety F41.9 ; Seasonal allergic rhinitis due to pollen J30.1 ; Screening for breast cancer Z12.39 ; Urge incontinence N39.41 ; Seborrhea L21.9 and Encounter for immunization Z23 [address] [address] Aug, Vertigo R42 [address] [address] Aug, Acute non-recurrent frontal sinusitis J01.[address] [address] Jul, Subacute maxillary sinusitis J01.[address] [address] Jun, Anxiety F41.[address] [address] Jun, Anxiety F41.9 ; Incontinence R32 ; Primary insomnia F51.01 and Screening for breast cancer Z12.[address] [address] Dec, Chest pain, unspecified type R07.[address] [address] Nov, [address] [address] Nov, Reactive depression F32.9 ; Urge incontinence N39.41 and Allergic rhinitis, unspecified allergic rhinitis type J30.[address] [address] Nov, [address] [address] Nov, [address] [address] Nov, [address] [address] Nov, Reactive depression F32.9 ; Urge incontinence N39.41 ; Acute frontal sinusitis, recurrence not specified J01.10 and Cystitis N30.[address] [address] Oct, Reactive depression F32.9 and Finger tendinitis M77.[address] [address] Aug, [address] [address] Aug, Bronchitis J40 and Wheezing R06.[address] [address] Aug, Dyspnea R06.00 and Abdominal pain R10.[address] [address] Jul, Rib pain on right side R07.81 ; Depression F32.9 and Encounter for immunization Z23 [address] [address] Jun, [facility] [address] [place] [address] Jun, [address] [address] May, [place] [address] [place] [phone] May, IMMUNIZATIONS No Known Immunizations SOCIAL HISTORY Never Assessed REASON FOR VISIT Suture removal, SOB JBishop PLAN OF CARE Activity Details Follow Up prn, 1 Week Reason:Cariodlogy VITAL SIGNS Height 63 in 2018-01-16 Weight 144.6 lbs 2018-01-16 Temperature 97.6 degrees Fahrenheit 2018-01-16 Heart Rate 96 bpm 2018-01-16 Respiratory Rate 20 2018-01-16 BMI 25.61 kg/m2 2018-01-16 Blood pressure systolic 100 mmHg 2018-01-16 Blood pressure diastolic 56 mmHg 2018-01-16 MEDICATIONS Medication Instructions Dosage Frequency Start Date End Date Duration Status Calcium + D3 600-200 MG-UNIT Active Stool Softener 100 MG Orally Once a day 1 capsule as needed 24h Active Multivitamin Adult - Active Multivitamin Adults 50+ Active Lunesta 2 MG Orally Once a day 1 tablet immediately before bedtime 24h Jul, 30 days Active VESIcare 10 mg Orally Once a day 1 tablet 24h 90 Active Flonase Allergy Relief 50 MCG/ACT Nasally Once a day 1 spray in each nostril 24h Oct, 30 day(s) Active Zoloft 25 MG Orally Once a day 1 tablet 24h 30 day(s) Active Trazodone HCl 50 mg 1 tablet at bedtime as needed Once a day Orally 60 days 60 Active Fosamax 70 MG Orally once weekly in the morning with an 8 oz glass of water. No eating, lying down for 30 minutes. once weekly 1 tablet Aug, Active Ketoconazole 1 % Externally Twice a day. Lather on and rinse off 10 minutes later 1 application to scalp as needed 14 days Active Anoro Ellipta 62.5-25 MCG/INH Inhalation Once a day 1 puff 24h Dec, Active Pepcid 40 mg Orally Once a day 1 tablet 24h Aug, 30 day(s) Active RESULTS Name Result Date Reference Range Xray : Chest 2 View (IN HOUSE) 2018-01-16 CMP 2018-01-16 Request Problem NTI Urine Tube (Lilly) Kimmy Koko CMP14 Default Request Problem Request Problem Sodium, Serum Potassium, Serum Chloride, Serum Carbon Dioxide, Total BUN Creatinine, Serum eGFR If NonAfricn Am eGFR If Africn Am BUN/Creatinine Ratio Glucose, Serum Calcium, Serum Bilirubin, Total AST (SGOT) ALT (SGPT) Alkaline Phosphatase, S Protein, Total, Serum Albumin, Serum Globulin, Total A/G Ratio Specimen Identification Status Please note GLUCOSE UREA NITROGEN (BUN) CREATININE eGFR NON-AFR. WALLISIAN eGFR BUN/CREATININE RATIO SODIUM POTASSIUM CHLORIDE CARBON DIOXIDE CALCIUM PROTEIN, TOTAL ALBUMIN GLOBULIN ALBUMIN/GLOBULIN RATIO BILIRUBIN, TOTAL ALKALINE PHOSPHATASE AST ALT CBC 2018-01-16 ABSOLUTE LYMPHOCYTES Please note ABSOLUTE PLASMA CELLS WBC ABSOLUTE PROLYMPHOCYTES RBC ABSOLUTE REACTIVE LYMPHOCYTES Hemoglobin CBC MORPHOLOGY Hematocrit CONTAINER TYPE: MCV FINAL RESOLUTION MCH MCHC MESSAGE: NOTE RDW PLASMA CELLS Platelets NRBC PLATELET ESTIMATION Neutrophils PROLYMPHOCYTES Lymphs QUESTION/PROBLEM Monocytes WHITE BLOOD CELL COUNT Eos RED BLOOD CELL COUNT Basos HEMOGLOBIN HEMATOCRIT Immature Granulocytes MCV Neutrophils (Absolute) Lymphs (Absolute) MCH MCHC Monocytes(Absolute) Eos (Absolute) RDW Baso (Absolute) PLATELET COUNT Immature Grans (Abs) NEUTROPHILS BAND NEUTROPHILS Immature Cells Bands ABSOLUTE BAND NEUTROPHILS Blasts/blast like cells METAMYELOCYTES Megakaryocytes ABSOLUTE METAMYELOCYTES Metamyelocytes MYELOCYTES Myelocytes ABSOLUTE MYELOCYTES Other, Lineage Uncertain PROMYELOCYTES Promyelocytes ABSOLUTE PROMYELOCYTES ABSOLUTE NEUTROPHILS Hematology Comments: LYMPHOCYTES Request Problem REACTIVE LYMPHOCYTES Request Problem ABSOLUTE LYMPHOCYTES MONOCYTES ABSOLUTE MONOCYTES EOSINOPHILS ABSOLUTE EOSINOPHILS BASOPHILS ABSOLUTE BASOPHILS BLASTS ABSOLUTE BLASTS NUCLEATED RBC ABSOLUTE NUCLEATED RBC COMMENT(S) MPV D-DIMER 2018-01-16 D-Dimer Request Problem D-DIMER, QUANTITATIVE D-Dimer TSH 2018-01-16 Kimmy Sigala CMP14 Default TSH Ambiguous Test Order NTI Urine Tube (Lilly) Request Problem Specimen Identification Status Specimen Identification Status Please note Request Problem Request Problem TSH TROPONIN I 2018-01-16 Please note Troponin I TROPONIN I CT Scan : Chest w/ Contrast NUCLEAR MED : Vent. Lung Scan 2018-01-25 Echo 2D 2018-01-28 PROCEDURES Procedure Date Ordered Result Body Site EKG, TRACING (IN-HOUSE) 2018-01-16 Negative ELECTROCARDIOGRAM, TRACING January 16, 2018 [facility], 2018 X-RAY EXAM CHEST 2 VIEWS January 16, 2018 [facility] VISIT ESTABLISHED PATIENT January 16, 2018 INSTRUCTIONS MEDICATIONS ADMINISTERED No Known Medications MEDICAL (GENERAL) HISTORY Type Description Date Medical History Reactive depression Medical History Urge incontinence Surgical History cholecystectomy Surgical History intubated Surgical History hysterectomy Surgical History right ankle had plate and pin Surgical History gall bladder Hospitalization History Stomach Issues 2015 Hospitalization History Surgery(s)/Childbirth(s)
--- OUTSIDE RECORDS SUMMARY | 2019-02-19 07:25 | XMS REPORT ---
Author Author NATALEE DÍAZ [facility] Address [address] [place] [address] Care Team Providers Care Wine And Spirits Clerk Name Role Phone NATAELE DÍAZ Unavailable PROBLEMS Type Condition ICD9-CM Code [id number] Code Onset Dates Condition Status SNOMED Code Problem Encounter for immunization Z23 Active 657469019 Problem Reactive depression F32.9 Active 05105715 Problem Urge incontinence N39.41 Active 73120472 Problem Age-related osteoporosis without current pathological fracture M81.0 Active 75130497 Problem GERD without esophagitis K21.9 Active 337861486 Problem Anxiety F41.9 Active 35667767 Problem Seasonal allergic rhinitis due to pollen J30.1 Active 11552714 Problem Bilateral hearing loss, unspecified hearing loss type H91.93 Active 62978944 Problem Primary insomnia F51.01 Active 1153904 ALLERGIES Substance Reaction Event Type Date Status Trimethoprim-Sulfamethoxazole hives Drug Allergy Aug, Active sulfa Unknown Non Drug Allergy Aug, Active ENCOUNTERS Encounter Location Date Diagnosis [address] [id number] [place] [id number] Dec, [address] [id number] [place] [id number] Dec, Shortness of breath R06.02 and Chest pain, unspecified type R07.[address] [id number] [place] [id number] Dec, [address] [id number] [place] [id number] Dec, [address] [id number] [place] [id number] Nov, Dental examination Z01.[address] [id number] [place] [id number] Aug, Breast mass N63.0 and Age-related osteoporosis without current pathological fracture M81.0 [facility] [place] [address] [facility] C [id number] [place] [id number] Aug, Traumatic injury of head, initial encounter S09.90XA ; Facial skin lesion L98.9 ; Primary insomnia F51.01 ; Post-menopausal Z78.0 ; GERD without esophagitis K21.9 ; Bilateral hearing loss, unspecified hearing loss type H91.93 ; Screening for breast cancer Z12.31 and Encounter for immunization Z23 [facility] [place] [address] [place] [address] [address] [id number] [place] [id number] Aug, [facility] [place] [address] [place] [address] C [id number] [place] [id number] Jul, Primary insomnia F51.01 [facility] [place] [address] [place] [address] C [id number] [place] [id number] May, Acute non-recurrent maxillary sinusitis J01.00 ; Anxiety F41.9 and Primary insomnia F51.01 [facility] [place] [address] [place] [address] C [id number] [place] [id number] Mar, [facility] [place] [address] [place] [address] C [id number] [place] [id number] Nov, Prehypertension R03.0 and Hyperkalemia E87.5 [facility] [place] [address] [place] [address] C [id number] [place] [id number] Nov, Hyperkalemia E87.5 [facility] [place] [address] [place] [address] C [id number] [place] [id number] Nov, Prehypertension R03.0 ; Anxiety F41.9 ; Urge incontinence N39.41 and Seborrhea L21.9 [facility] [place] [address] [place] [address] C [id number] [place] [id number] Nov, Dyspnea R06.00 and Prehypertension R03.0 [facility] [place] [address] [place] [address] C [id number] [place] [id number] Nov, Dyspnea R06.00 ; Primary insomnia F51.01 and Prehypertension R03.0 [facility] [place] [address] [facility] [address] [id number] [place] [id number] Oct, Prehypertension R03.0 ; Anxiety F41.9 ; Seasonal allergic rhinitis due to pollen J30.1 ; Screening for breast cancer Z12.39 ; Urge incontinence N39.41 ; Seborrhea L21.9 and Encounter for immunization Z23 [facility] [place] [address] [place] [address] [address] [id number] [place] [id number] Aug, Vertigo R42 [facility] [place] [address] [place] [address] [address] [id number] [place] [id number] Aug, Acute non-recurrent frontal sinusitis J01.10 [facility] [place] [address] [place] [address] [address] [id number] [place] [id number] Jul, Subacute maxillary sinusitis J01.00 [facility] [place] [address] [place] [address] [address] [id number] [place] [id number] Jun, Anxiety F41.9 [facility] [place] [address] [place] [address] [address] [id number] [place] [id number] Jun, Anxiety F41.9 ; Incontinence R32 ; Primary insomnia F51.01 and Screening for breast cancer Z12.39 [facility] [place] [address] [place] [address] [address] [id number] [place] [id number] Dec, Chest pain, unspecified type R07.9 [facility] [place] [address] [place] [address] [address] [id number] [place] [id number] Nov, [facility] [place] [address] [place] [address] [address] [id number] [place] [id number] Nov, Reactive depression F32.9 ; Urge incontinence N39.41 and Allergic rhinitis, unspecified allergic rhinitis type J30.9 [facility] [place] [address] [place] [address] [address] [id number] [place] [id number] Nov, [facility] [place] [address] [place] [address] [address] [id number] [place] [id number] Nov, [facility] [place] [address] [place] [address] [address] [id number] [place] [id number] Nov, [facility] [address] [id number] [place] [id number] Nov, Reactive depression F32.9 ; Urge incontinence N39.41 ; Acute frontal sinusitis, recurrence not specified J01.10 and Cystitis N30.[address] [id number] [place] [id number] Oct, Reactive depression F32.9 and Finger tendinitis M77.[address] [id number] [place] [id number] Aug, [address] [id number] [place] [id number] Aug, Bronchitis J40 and Wheezing R06.[address] [id number] [place] [id number] Aug, Dyspnea R06.00 and Abdominal pain R10.[address] [id number] [place] [id number] Jul, Rib pain on right side R07.81 ; Depression F32.9 and Encounter for immunization Z23 [address] [id number] [place] [id number] Jun, [place] [address] [facility] [id number] [place] [address] Jun, [address] [id number] [place] [id number] May, [place] [address] [address] [facility] [id number] [address] May, IMMUNIZATIONS Vaccine Route Administration Date Status FLUARIX QUAD (3 AND UP) 2017 ID Intradermal Aug 27, 2017 Administered PPSV23 (PNEUMOVAX) IM Intramuscular Aug 27, 2017 Administered SOCIAL HISTORY Never Assessed REASON FOR VISIT f/u [facility] 08[facility]08[facility]17, injured head, back & around rib cage & still hurting.........................lwileyrn PLAN OF CARE Activity Details Follow Up prn Reason: VITAL SIGNS Height 63 in 2017-08-27 Weight 142.0 lbs 2017-08-27 Temperature 97.6 degrees Fahrenheit 2017-08-27 Heart Rate 60 bpm 2017-08-27 Respiratory Rate 18 2017-08-27 BMI 25.15 kg/m2 2017-08-27 Blood pressure systolic 108 mmHg 2017-08-27 Blood pressure diastolic 64 mmHg 2017-08-27 MEDICATIONS Medication Instructions Dosage Frequency Start Date End Date Duration Status Ketoconazole 1 % Externally Twice a day. Lather on and rinse off 10 minutes later 1 application to scalp as needed 14 days Active Flonase Allergy Relief 50 MCG/ACT Nasally Once a day 1 spray in each nostril 24h Oct, 30 day(s) Active Pepcid 40 mg Orally Once a day 1 tablet 24h Aug, 30 day(s) Active Lunesta 2 MG Orally Once a day 1 tablet immediately before bedtime 24h Jul, 30 days Active VESIcare 10 mg Orally Once a day 1 tablet 24h 90 Active Multivitamin Adult - Active Multivitamin Adults 50+ Active Calcium + D3 600-200 MG-UNIT Active Stool Softener 100 MG Orally Once a day 1 capsule as needed 24h Active Trazodone HCl 50 mg 1 tablet at bedtime as needed Once a day Orally 60 days 60 Active Zoloft 25 MG Orally Once a day 1 tablet 24h 30 day(s) Active RESULTS Name Result Date Reference Range Mammogram, Bilateral Screening 2017-08-31 Bone Density 2017-08-31 PROCEDURES Procedure Date Ordered Result Body Site PPSV23 (PNEUMOVAX) Aug 27, 2017 [facility] PNEUMCOC VAC NO FEE SCHED DAY Aug 27, 2017 [facility] VISIT ESTABLISHED PATIENT Aug 27, 2017 SINGLE IMMUNIZATION ADMIN Aug 27, 2017 INSTRUCTIONS MEDICATIONS ADMINISTERED No Known Medications MEDICAL (GENERAL) HISTORY Type Description Date Medical History Reactive depression Medical History Urge incontinence Surgical History cholecystectomy Surgical History intubated Surgical History hysterectomy Surgical History right ankle had plate and pin Surgical History gall bladder Hospitalization History Stomach Issues 2015 Hospitalization History Surgery(s)/Childbirth(s)
--- OUTSIDE RECORDS SUMMARY | 2019-02-19 07:25 | XMS REPORT ---
Author Author NATALEE D[facility]AZ [facility] [place] Address [address] [place] [address] Care Team Providers Care Movie Critic Name Role Phone NATALEE DÍAZ Unavailable PROBLEMS Type Condition ICD9-CM Code [id number] Code Onset Dates Condition Status SNOMED Code Problem Other dyspnea and respiratory abnormalities 786.09 Active 399765566 Problem Abdominal pain, epigastric 789.06 Active 85799956 Problem Primary insomnia F51.01 Active 3080457 Problem Anxiety F41.9 Active 35736970 Problem Urge incontinence N39.41 Active 04786102 Problem Encounter for immunization Z23 Active 739902402 Problem Seasonal allergic rhinitis due to pollen J30.1 Active 62837118 Problem Reactive depression F32.9 Active 62529961 ALLERGIES No Information SOCIAL HISTORY Never Assessed PLAN OF CARE VITAL SIGNS MEDICATIONS No Known Medications RESULTS No Results PROCEDURES No Known procedures IMMUNIZATIONS No Known Immunizations MEDICAL (GENERAL) HISTORY Type Description Date Medical History Reactive depression Medical History Urge incontinence Surgical History cholecystectomy Surgical History intubated Surgical History hysterectomy Hospitalization History Stomach Issues 2016 Hospitalization History Surgery(s)/Childbirth(s)
--- OUTSIDE RECORDS SUMMARY | 2019-02-19 07:25 | XMS REPORT ---
Author Author [facility]EE [facility]AZ [facility] [place] Address [address] [place] [address] Care Team Providers Care Broodmare Barn Groom Name Role Phone PAIGENATALEE MCRAE Unavailable PROBLEMS Type Condition ICD9-CM Code SQG41-NP Code Onset Dates Condition Status SNOMED Code Problem Other dyspnea and respiratory abnormalities 786.09 Active 736796684 Problem Abdominal pain, epigastric 789.06 Active 50943400 Problem Primary insomnia F51.01 Active 4901085 Problem Anxiety F41.9 Active 53799499 Problem Urge incontinence N39.41 Active 34443549 Problem Encounter for immunization Z23 Active 882775705 Problem Seasonal allergic rhinitis due to pollen J30.1 Active 34489813 Problem Reactive depression F32.9 Active 26465033 ALLERGIES Substance Reaction Event Type Date Status Trimethoprim-Sulfamethoxazole hives Drug Allergy Nov, Active sulfa Unknown Non Drug Allergy Nov, Active SOCIAL HISTORY Never Assessed PLAN OF CARE Activity Details Follow Up prn Reason: VITAL SIGNS Height 63 in 2016-11-20 Weight 133.7 lbs 2016-11-20 Temperature 97.9 degrees Fahrenheit 2016-11-20 Heart Rate 72 bpm 2016-11-20 Respiratory Rate 18 2016-11-20 BMI 23.68 kg/m2 2016-11-20 Blood pressure systolic 128 mmHg 2016-11-20 Blood pressure diastolic 80 mmHg 2016-11-20 MEDICATIONS Medication Instructions Dosage Frequency Start Date End Date Duration Status Multivitamin Adults 50+ Active Ketoconazole 1 % Externally Twice a day. Lather on and rinse off 10 minutes later 1 application to scalp as needed 14 days Active VESIcare 10 mg Orally Once a day 1 tablet 24h 30 day(s) Active Zoloft 25 MG Orally Once a day 1 tablet 24h 30 day(s) Active Flonase Allergy Relief 50 MCG/ACT Nasally Once a day 1 spray in each nostril 24h Oct, 30 day(s) Active Multivitamin Adult - Active Stool Softener 100 MG Orally Once a day 1 capsule as needed 24h Active Calcium + D3 600-200 MG-UNIT Active RESULTS Name Result Date Reference Range TSH 2016-11-20 TSH 3.240 0.450-4.500 BMP 2016-11-20 Glucose, Serum 99 65-99 BUN 18 8-27 Creatinine, Serum 0.63 0.57-1.00 eGFR If NonAfricn Am 83 >59 eGFR If Africn Am 96 >59 BUN/Creatinine Ratio 29 11-26 Sodium, Serum 143 134-144 Potassium, Serum 6.4 3.5-5.2 Chloride, Serum 102 96-106 Carbon Dioxide, Total 29 18-29 Calcium, Serum 10.1 8.7-10.3 PROCEDURES Procedure Date Ordered Result Body Site ROUTINE VENIPUNCTURE 2016-11-20 N/A [facility] Nov 20, 2016 [facility] VISIT ESTABLISHED PATIENT Nov 20, 2016 IMMUNIZATIONS No Known Immunizations MEDICAL (GENERAL) HISTORY Type Description Date Medical History Reactive depression Medical History Urge incontinence Surgical History cholecystectomy Surgical History intubated Surgical History hysterectomy Hospitalization History Stomach Issues 2015 Hospitalization History Surgery(s)/Childbirth(s)
--- OUTSIDE RECORDS SUMMARY | 2019-02-19 07:25 | XMS REPORT ---
Author Author NATALEE DÍAZ [facility] Address [address] [place] [address] Care Team Providers Care National Sales Executive Name Role Phone PAIGENATALEE MCRAE Unavailable PROBLEMS Type Condition ICD9-CM Code VMB32-LR Code Onset Dates Condition Status SNOMED Code Problem Other dyspnea and respiratory abnormalities 786.09 Active 430274171 Problem Abdominal pain, epigastric 789.06 Active 22695176 Problem Primary insomnia F51.01 Active 1508418 Problem Anxiety F41.9 Active 52887292 Problem Urge incontinence N39.41 Active 78560019 Problem Encounter for immunization Z23 Active 434609052 Problem Seasonal allergic rhinitis due to pollen J30.1 Active 34485944 Problem Reactive depression F32.9 Active 07475152 ALLERGIES Substance Reaction Event Type Date Status Trimethoprim-Sulfamethoxazole hives Drug Allergy Oct, Active sulfa Unknown Non Drug Allergy Oct, Active SOCIAL HISTORY No smoking Hx information available PLAN OF CARE Activity Details Follow Up 3 Weeks Reason:recheck condition--anxiety VITAL SIGNS Height 63 in 2016-10-30 Weight 133.3 lbs 2016-10-30 Temperature 97.7 degrees Fahrenheit 2016-10-30 Heart Rate 70 bpm 2016-10-30 Respiratory Rate 16 2016-10-30 BMI 23.61 kg/m2 2016-10-30 Blood pressure systolic 128 mmHg 2016-10-30 Blood pressure diastolic 76 mmHg 2016-10-30 MEDICATIONS Medication Instructions Dosage Frequency Start Date End Date Duration Status Ketoconazole 1 % Externally Twice a day. Lather on and rinse off 10 minutes later 1 application to scalp as needed Oct, Dec, 14 days Active Stool Softener 100 MG Orally Once a day 1 capsule as needed 24h Active VESIcare 10 mg Orally Once a day 1 tablet 24h Oct, May, 30 day(s) Active Flonase Allergy Relief 50 MCG/ACT Nasally Once a day 1 spray in each nostril 24h Oct, 30 day(s) Active Multivitamin Adult - Active Zoloft 25 MG Orally Once a day 1 tablet 24h Oct, 30 day(s) Active RESULTS Name Result Date Reference Range Mammogram, Bilateral Screening PROCEDURES Procedure Date Ordered Related Diagnosis Body Site [facility] VISIT ESTABLISHED PATIENT Oct 30, 2016 Office Visit, Est Pt., Level 3 Oct 30, 2016 SINGLE IMMUNIZATION ADMIN Oct 30, 2016 FLUARIX QUAD P-FREE 3 AND UP .50 2015Oct 30, 2016 IMMUNIZATIONS Vaccine Route Administration Date Status FLUARIX QUAD P-FREE 3 AND UP .50 2015 IM Intramuscular Oct 30, 2016 Administered
--- OUTSIDE RECORDS SUMMARY | 2019-02-19 07:25 | XMS REPORT ---
Author Author NATALEE DÍAZ [facility] Address [address] [place] [address] Care Team Providers Care Dispatcher Refinery Name Role Phone NATALEE DÍAZ Unavailable PROBLEMS Type Condition ICD9-CM Code FKF35-IV Code Onset Dates Condition Status SNOMED Code Problem Encounter for immunization Z23 Active 968454819 Problem Reactive depression F32.9 Active 76883141 Problem Urge incontinence N39.41 Active 34312051 Problem Age-related osteoporosis without current pathological fracture M81.0 Active 25783389 Problem GERD without esophagitis K21.9 Active 362676439 Problem Anxiety F41.9 Active 25818853 Problem Seasonal allergic rhinitis due to pollen J30.1 Active 41701625 Problem Bilateral hearing loss, unspecified hearing loss type H91.93 Active 64535688 Problem Primary insomnia F51.01 Active 6353957 ALLERGIES Substance Reaction Event Type Date Status Trimethoprim-Sulfamethoxazole hives Drug Allergy May, Active sulfa Unknown Non Drug Allergy May, Active ENCOUNTERS Encounter Location Date Diagnosis [address] C [id number] [place] [id number] Dec, Medicare annual wellness visit, initial Z00.00 [facility] [place] [address] [place] [address] C [id number] [place] [id number] Dec, [facility] [place] [address] [place] [address] C [id number] [place] [id number] Dec, Shortness of breath R06.02 and Chest pain, unspecified type R07.9 [facility] [address] [id number] [place] [id number] Dec, [facility] [address] [id number] [place] [id number] Dec, [address] C [id number] [place] [id number] Nov, Dental examination Z01.20 [facility] [place] [address] [place] [address] [address] [id number] [place] [id number] Aug, Breast mass N63.0 and Age-related osteoporosis without current pathological fracture M81.0 [facility] [place] [address] [place] [address] C [id number] [place] [id number] Aug, Traumatic injury of head, initial encounter S09.90XA ; Facial skin lesion L98.9 ; Primary insomnia F51.01 ; Post-menopausal Z78.0 ; GERD without esophagitis K21.9 ; Bilateral hearing loss, unspecified hearing loss type H91.93 ; Screening for breast cancer Z12.31 and Encounter for immunization Z23 [facility] [place] [address] [place] [address] [address] [id number] [place] [id number] Aug, [facility] [place] [address] [place] [address] C [id number] [place] [id number] Jul, Primary insomnia F51.01 [facility] [place] [address] [place] [address] C [id number] [place] [id number] May, Acute non-recurrent maxillary sinusitis J01.00 ; Anxiety F41.9 and Primary insomnia F51.01 [facility] [place] [address] [place] [address] [address] [id number] [place] [id number] Mar, [facility] [place] [address] [place] [address] C [id number] [place] [id number] Nov, Hyperkalemia E87.5 and Prehypertension R03.0 [facility] [place] [address] [place] [address] [address] [id number] [place] [id number] Nov, Hyperkalemia E87.5 [facility] [place] [address] [place] [address] [address] [id number] [place] [id number] Nov, Prehypertension R03.0 ; Anxiety F41.9 ; Urge incontinence N39.41 and Seborrhea L21.9 [facility] [place] [address] [place] [address] [address] [id number] [place] [id number] Nov, Dyspnea R06.00 and Prehypertension R03.0 [facility] [place] [address] [place] [address] [address] [id number] [place] [id number] Nov, Dyspnea R06.00 ; Primary insomnia F51.01 and Prehypertension R03.0 [facility] [place] [address] [place] [address] [address] [id number] [place] [id number] Oct, Prehypertension R03.0 ; Anxiety F41.9 ; Seasonal allergic rhinitis due to pollen J30.1 ; Screening for breast cancer Z12.39 ; Urge incontinence N39.41 ; Seborrhea L21.9 and Encounter for immunization Z23 [facility] [place] [address] [place] [address] [address] [id number] [place] [id number] Aug, Vertigo R42 [facility] [place] [address] [place] [address] [address] [id number] [place] [id number] Aug, Acute non-recurrent frontal sinusitis J01.10 [facility] [place] [address] [place] [address] [address] [id number] [place] [id number] Jul, Subacute maxillary sinusitis J01.00 [facility] [place] [address] [place] [address] [address] [id number] [place] [id number] Jun, Anxiety F41.9 [facility] [place] [address] [place] [address] [address] [id number] [place] [id number] Jun, Anxiety F41.9 ; Incontinence R32 ; Primary insomnia F51.01 and Screening for breast cancer Z12.39 [facility] [place] [address] [place] [address] [address] [id number] [place] [id number] Dec, Chest pain, unspecified type R07.9 [facility] [place] [address] [place] [address] [address] [id number] [place] [id number] Nov, [facility] [place] [address] [place] [address] [address] [id number] [place] [id number] Nov, Reactive depression F32.9 ; Urge incontinence N39.41 and Allergic rhinitis, unspecified allergic rhinitis type J30.9 [facility] [place] [address] [facility] [address] [id number] [place] [id number] Nov, [facility] [place] [address] [place] [address] [address] [id number] [place] [id number] Nov, [facility] [place] [address] [place] [address] C [id number] [place] [id number] Nov, [facility] [place] [address] [place] [address] C [id number] [place] [id number] Nov, Reactive depression F32.9 ; Urge incontinence N39.41 ; Acute frontal sinusitis, recurrence not specified J01.10 and Cystitis N30.90 [facility] [place] [address] [place] [address] C [id number] [place] [id number] Oct, Reactive depression F32.9 and Finger tendinitis M77.9 [facility] [place] [address] [place] [address] C [id number] [place] [id number] Aug, [address] [id number] [place] [id number] Aug, Bronchitis J40 and Wheezing R06.[address] [id number] [place] [id number] Aug, Dyspnea R06.00 and Abdominal pain R10.[address] C [id number] [place] [id number] Jul, Rib pain on right side R07.81 ; Depression F32.9 and Encounter for immunization Z23 [address] [id number] [place] [id number] Jun, [facility] [address] [facility] [id number] [address] Jun, [address] [id number] [place] [id number] May, [facility] [address] [facility] [id number] [address] May, IMMUNIZATIONS No Known Immunizations SOCIAL HISTORY Never Assessed REASON FOR VISIT Sinus Infection, feels like it may be moving into her chest. Sx over a week- Best ttonRN, Sleeping issues- Making her very tired- Annabel PLAN OF CARE Activity Details Follow Up prn Reason: VITAL SIGNS Height 63 in 2017-05-29 Weight 144.2 lbs 2017-05-29 Temperature 98.4 degrees Fahrenheit 2017-05-29 Heart Rate 82 bpm 2017-05-29 Respiratory Rate 18 2017-05-29 BMI 25.54 kg/m2 2017-05-29 Blood pressure systolic 118 mmHg 2017-05-29 Blood pressure diastolic 82 mmHg 2017-05-29 MEDICATIONS Medication Instructions Dosage Frequency Start Date End Date Duration Status Ketoconazole 1 % Externally Twice a day. Lather on and rinse off 10 minutes later 1 application to scalp as needed 14 days Active Stool Softener 100 MG Orally Once a day 1 capsule as needed 24h Active Amoxicillin 500 mg Orally every 12 hrs 2 capsules 12h May, Jun, 10 day(s) Active Zoloft 25 MG Orally Once a day 1 tablet 24h 30 day(s) Active Flonase Allergy Relief 50 MCG/ACT Nasally Once a day 1 spray in each nostril 24h Oct, 30 day(s) Active Multivitamin Adult - Active Multivitamin Adults 50+ Active VESIcare 10 mg Orally Once a day 1 tablet 24h 30 day(s) Active Trazodone HCl 50 mg 1 tablet at bedtime as needed Once a day Orally 60 days 60 Active Calcium + D3 600-200 MG-UNIT Active RESULTS No Results PROCEDURES Procedure Date Ordered Result Body Site [facility] VISIT ESTABLISHED PATIENT May 29, 2017 INSTRUCTIONS MEDICATIONS ADMINISTERED No Known Medications MEDICAL (GENERAL) HISTORY Type Description Date Medical History Reactive depression Medical History Urge incontinence Surgical History cholecystectomy Surgical History intubated Surgical History hysterectomy Surgical History right ankle had plate and pin Surgical History gall bladder Hospitalization History Stomach Issues 2015 Hospitalization History Surgery(s)/Childbirth(s)
--- OUTSIDE RECORDS SUMMARY | 2019-02-19 07:25 | XMS REPORT ---
Author Author NATALEE DÍAZ Organization [employer] Address Unknown Phone Unavailable Care Team Providers Care Paper Grader Name Role Phone NATALEE DÍAZ CP Unavailable Allergies No Known Allergies Problems Problem Type Condition Code Onset Dates Condition Status Problem Urge incontinence N39.41 Active Problem Encounter for immunization Z23 Active Problem Reactive depression F32.9 Active Assessment Acute non-recurrent frontal sinusitis J01.10 Active Problem Other dyspnea and respiratory abnormalities 786.09 Active Problem Abdominal pain, epigastric 789.06 Active Medications Medication Code System Code Instructions Start Date End Date Status Dosage Doxycycline Hyclate [facility] [address]-87 100 MG Orally every 12 hrs Aug 03, 2016 Aug 13, 2016 1 capsule Results No Known Results Summary Purpose [employer] Submission
--- OUTSIDE RECORDS SUMMARY | 2019-02-19 07:25 | XMS REPORT ---
Author Author NATALEE DÍAZ [facility] Address [address] [place] [address] Care Team Providers Care Stockholder Name Role Phone NATALEE DÍAZ Unavailable PROBLEMS Type Condition ICD9-CM Code WGN45-CC Code Onset Dates Condition Status SNOMED Code Problem Other dyspnea and respiratory abnormalities 786.09 Active 041339539 Problem Abdominal pain, epigastric 789.06 Active 51396730 Problem Primary insomnia F51.01 Active 8866887 Problem Anxiety F41.9 Active 70973459 Problem Urge incontinence N39.41 Active 51622754 Problem Encounter for immunization Z23 Active 677419710 Problem Seasonal allergic rhinitis due to pollen J30.1 Active 46241336 Problem Reactive depression F32.9 Active 44107328 ALLERGIES No Information SOCIAL HISTORY Never Assessed [...]
--- OUTSIDE RECORDS SUMMARY | 2019-02-19 07:25 | XMS REPORT ---
Author Author LOREE MALLORY Organization [employer] Address Unknown Phone Unavailable Care Team Providers Care Cut File Clerk Name Role Phone LOREE MALLORY CP Unavailable Allergies No Known Allergies Problems Problem Type Condition Code Onset Dates Condition Status Problem Other dyspnea and respiratory abnormalities 786.09 Active Problem Abdominal pain, epigastric 789.06 Active Problem Encounter for immunization Z23 Active Medications No Known Medications Results No Known Results Summary Purpose [employer] Submission
--- OUTSIDE RECORDS SUMMARY | 2019-02-19 07:25 | XMS REPORT ---
Author Author LOREE MALLORY Organization [employer] Address Unknown Phone Unavailable Care Team Providers Care Immunochemist Name Role Phone LOREE MALLORY CP Unavailable Allergies, Adverse Reactions, Alerts Substance Reaction Event Type N.K.D.A. Info Not Available Non Drug Allergy Problems Problem Type Condition Code Onset Dates Condition Status Problem Other dyspnea and respiratory abnormalities 786.09 Active Problem Abdominal pain, epigastric 789.06 Active Problem Encounter for immunization Z23 Active Assessment Encounter for immunization Z23 Active Assessment Rib pain on right side R07.81 Active Assessment Depression F32.9 Active Medications Medication Code System Code Instructions Start Date End Date Status Dosage Alprazolam [facility] [address]-04 0.5 MG Orally 2 times a day prn anxiety Jul 28, 2015 1 tablet Meloxicam [facility] [address]-20 15 MG Orally Once a day for rib pain Jul 28, 2015 1 tablet Citalopram Hydrobromide [facility] [address]-67 20 MG Orally Once a day Jul 28, 2015 1 tablet Procedures Procedure Coding System Code Date [facility] VISIT ESTABLISHED PATIENT CPT-4 G0467 Jul 28, 2015 Office Visit, Est Pt., Level 3 CPT-4 36079 Jul 28, 2015 CHEST X-RAY CPT-4 30744 Jul 28, 2015 PCV 13 CPT-4 47244 Jul 28, 2015 FLUARIX QUAD (3 & UP)-GSK-2014 CPT-4 86786 Jul 28, 2015 IMMUNIZATION ADMIN, EACH ADD (please include units) CPT-4 88726 Jul 28, 2015 SINGLE IMMUNIZATION ADMIN CPT-4 97568 Jul 28, 2015 Vital Signs Date/Time: Jul 28, 2015 Temperature 98.1 F Weight 142 lbs Height 63 in BMI 25.15 Index Blood Pressure Diastolic 90 mmHg Blood Pressure Systolic 150 mmHg Cardiac Monitoring Heart Rate 88 bpm Results Name Result Date Reference Range Unit Abnormality Flag Xray : Chest (IN HOUSE) Immunizations Vaccine Administration Date FLUARIX QUAD (3 & UP)-GSK-2014Jul 28, 2015 PCV 13 Jul 28, 2015 Summary Purpose [employer] Submission
--- OUTSIDE RECORDS SUMMARY | 2019-02-19 07:25 | XMS REPORT ---
Author Author NATALEE DÍAZ [facility] Address [address] [place] [address] Care Team Providers Care Juice Scaleman Name Role Phone NATALEE DÍAZ Unavailable PROBLEMS Type Condition ICD9-CM Code YNV04-DB Code Onset Dates Condition Status SNOMED Code Problem Encounter for immunization Z23 Active 738527817 Problem Reactive depression F32.9 Active 16979998 Problem Urge incontinence N39.41 Active 78854079 Problem Age-related osteoporosis without current pathological fracture M81.0 Active 45494123 Problem GERD without esophagitis K21.9 Active 080165288 Problem Anxiety F41.9 Active 43679005 Problem Seasonal allergic rhinitis due to pollen J30.1 Active 54737038 Problem Bilateral hearing loss, unspecified hearing loss type H91.93 Active 22120495 Problem Primary insomnia F51.01 Active 5953401 ALLERGIES No Information ENCOUNTERS Encounter Location Date Diagnosis [facility] [place] [id number] [place] [id number] Dec, [facility] [place] [address] [place] [address] C [id number] [place] [id number] 18 Dec, 2017 Shortness of breath R06.02 and Chest pain, unspecified type R07.9 [facility] [place] [address] [place] [address] [address] [id number] [place] [id number] Dec, [facility] [place] [address] [place] [address] [address] [id number] [place] [id number] Dec, [facility] [place] [address] [place] [address] [address] [id number] [place] [id number] Nov, Dental examination Z01.20 [facility] [address] [place] [address] C [id number] [place] [id number] Aug, Breast mass N63.0 and Age-related osteoporosis without current pathological fracture M81.0 [facility] [place] [address] [place] [address] [address] [id number] [place] [id number] Aug, Traumatic injury of head, initial encounter S09.90XA ; Facial skin lesion L98.9 ; Primary insomnia F51.01 ; Post-menopausal Z78.0 ; GERD without esophagitis K21.9 ; Bilateral hearing loss, unspecified hearing loss type H91.93 ; Screening for breast cancer Z12.31 and Encounter for immunization Z23 [facility] [place] [address] [place] [address] C [id number] [place] [id number] Aug, [facility] [place] [address] [place] [address] C [id number] [place] [id number] Jul, Primary insomnia F51.01 [facility] [place] [address] [place] [address] C [id number] [place] [id number] May, Acute non-recurrent maxillary sinusitis J01.00 ; Anxiety F41.9 and Primary insomnia F51.01 [facility] [place] [address] [place] [address] C [id number] [place] [id number] Mar, [facility] [place] [address] [place] [address] C [id number] [place] [id number] Nov, Prehypertension R03.0 and Hyperkalemia E87.5 [facility] [place] [address] [place] [address] C [id number] [place] [id number] Nov, Hyperkalemia E87.5 [facility] [place] [address] [place] [address] C [id number] [place] [id number] Nov, Prehypertension R03.0 ; Anxiety F41.9 ; Urge incontinence N39.41 and Seborrhea L21.9 [facility] [place] [address] [place] [address] C [id number] [place] [id number] Nov, Dyspnea R06.00 and Prehypertension R03.0 [facility] [place] [address] [place] [address] C [id number] [place] [id number] Nov, Dyspnea R06.00 ; Primary insomnia F51.01 and Prehypertension R03.0 [facility] [place] [address] [place] [address] C [id number] [place] [id number] 30 Rod, 2017 Prehypertension R03.0 ; Anxiety F41.9 ; Seasonal allergic rhinitis due to pollen J30.1 ; Screening for breast cancer Z12.39 ; Urge incontinence N39.41 ; Seborrhea L21.9 and Encounter for immunization Z23 [facility] [place] [address] [facility] [address] [id number] [place] [id number] 08 Aug, 2016 Vertigo R42 [facility] [place] [address] [place] [address] [address] [id number] [place] [id number] Aug, Acute non-recurrent frontal sinusitis J01.10 [facility] [place] [address] [place] [address] [address] [id number] [place] [id number] Jul, Subacute maxillary sinusitis J01.00 [facility] [place] [address] [place] [address] [address] [id number] [place] [id number] Jun, Anxiety F41.9 [facility] [place] [address] [place] [address] [address] [id number] [place] [id number] Jun, Anxiety F41.9 ; Incontinence R32 ; Primary insomnia F51.01 and Screening for breast cancer Z12.39 [facility] [place] [address] [place] [address] [address] [id number] [place] [id number] Dec, Chest pain, unspecified type R07.9 [facility] [place] [address] [place] [address] [address] [id number] [place] [id number] Nov, [facility] [place] [address] [place] [address] [address] [id number] [place] [id number] Nov, Reactive depression F32.9 ; Urge incontinence N39.41 and Allergic rhinitis, unspecified allergic rhinitis type J30.9 [facility] [place] [address] [place] [address] [address] [id number] [place] [id number] Nov, [facility] [place] [address] [facility] [address] [id number] [place] [id number] Nov, [facility] [place] [address] [place] [address] [address] [id number] [place] [id number] Nov, [facility] [place] [address] [place] [address] [address] [id number] [place] [id number] Nov, Reactive depression F32.9 ; Urge incontinence N39.41 ; Acute frontal sinusitis, recurrence not specified J01.10 and Cystitis N30.[address] [id number] [place] [id number] Oct, Reactive depression F32.9 and Finger tendinitis M77.9 [facility] [address] [place] [address] C [id number] [place] [id number] Aug, [facility] [place] [address] [place] [address] [id number] [place] [id number] Aug, Bronchitis J40 and Wheezing R06.[address] [id number] [place] [id number] Aug, Dyspnea R06.00 and Abdominal pain R10.[address] [id number] [place] [id number] Jul, Rib pain on right side R07.81 ; Depression F32.9 and Encounter for immunization Z23 [address] [id number] [place] [id number] Jun, [facility] [address] [facility] [id number] [place] [address] Jun, [address] [id number] [place] [id number] May, [facility] [address] [facility] [id number] [place] [address] May, IMMUNIZATIONS No Known Immunizations SOCIAL HISTORY Never Assessed REASON FOR VISIT Medication question PLAN OF CARE VITAL SIGNS MEDICATIONS Medication Instructions Dosage Frequency Start Date End Date Duration Status Lunesta 2 MG Orally Once a day 1 tablet immediately before bedtime 24h Jul, 30 days Active RESULTS No Results PROCEDURES No Known procedures INSTRUCTIONS MEDICATIONS ADMINISTERED No Known Medications MEDICAL (GENERAL) HISTORY Type Description Date Medical History Reactive depression Medical History Urge incontinence Surgical History cholecystectomy Surgical History intubated Surgical History hysterectomy Surgical History right ankle had plate and pin Surgical History gall bladder Hospitalization History Stomach Issues 2016 Hospitalization History Surgery(s)/Childbirth(s)
--- OUTSIDE RECORDS SUMMARY | 2019-02-19 07:25 | XMS REPORT ---
Author Author LOREE MALLORY Organization eClinicalWorks Address Unknown Phone Unavailable Care Team Providers Care Cloth Desizing Range Operator Chief Name Role Phone LOREE MALLORY CP Unavailable Allergies, Adverse Reactions, Alerts Substance Reaction Event Type N.K.D.A. Info Not Available Non Drug Allergy Problems Problem Type Condition Code Onset Dates Condition Status Problem Other dyspnea and respiratory abnormalities 786.09 Active Problem Abdominal pain, epigastric 789.06 Active Problem Encounter for immunization Z23 Active Assessment Dyspnea R06.00 Active Assessment Abdominal pain R10.9 Active Medications Medication Code System Code Instructions Start Date End Date Status Dosage Meloxicam [facility] [address]-22 15 MG Orally Once a day for rib pain Jul 28, 2015 1 tablet Alprazolam [facility] [address]-77 0.5 MG Orally 2 times a day prn anxiety Jul 28, 2015 1 tablet Citalopram Hydrobromide [facility] [address]-99 20 MG Orally Once a day Jul 28, 2015 1 tablet Procedures Procedure Coding System Code Date No Charge CPT-4 67295 Sep 08, 2015 Vital Signs Date/Time: Sep 08, 2015 Temperature 97.7 F Weight 136.6 lbs Height 63 in Oximetry 90 % Blood Pressure Diastolic 80 mmHg Blood Pressure Systolic 146 mmHg Cardiac Monitoring Heart Rate 100 bpm BMI 24.19 Index Results No Known Results Summary Purpose eClinicalWorks Submission
--- OUTSIDE RECORDS SUMMARY | 2019-02-19 07:26 | XMS REPORT ---
Author Author NATALEE DÍAZ [facility] Address [address] [place] [address] Care Team Providers Care Meat Butcher Name Role Phone NATALEE DÍAZ Unavailable PROBLEMS Type Condition ICD9-CM Code OIS88-FW Code Onset Dates Condition Status SNOMED Code Problem Encounter for immunization Z23 Active 137481417 Problem Reactive depression F32.9 Active 23829199 Problem Urge incontinence N39.41 Active 10620013 Problem Age-related osteoporosis without current pathological fracture M81.0 Active 97144179 Problem GERD without esophagitis K21.9 Active 264968604 Problem Anxiety F41.9 Active 85538118 Problem Seasonal allergic rhinitis due to pollen J30.1 Active 28430908 Problem Bilateral hearing loss, unspecified hearing loss type H91.93 Active 68040313 Problem Primary insomnia F51.01 Active 7939229 ALLERGIES No Information ENCOUNTERS Encounter Location Date Diagnosis [facility] [address] [id number] [place] [id number] Dec, [facility] [place] [address] [place] [address] C [id number] [place] [id number] 18 Dec, 2017 Shortness of breath R06.02 and Chest pain, unspecified type R07.9 [facility] [place] [address] [place] [address] [address] [id number] [place] [id number] Dec, [facility] [place] [address] [place] [address] [address] [id number] [place] [id number] Dec, [facility] [place] [address] [place] [address] [address] [id number] [place] [id number] Nov, [facility] examination Z01.20 [facility] [address] [place] [address] C [id number] [place] [id number] Aug, Breast mass N63.0 and Age-related osteoporosis without current pathological fracture M81.0 [facility] [place] [address] [place] [address] [address] [id number] [place] [id number] Aug, Traumatic injury of head, initial encounter S09.90XA ; Facial skin lesion L98.9 ; Primary insomnia F51.01 ; Post-menopausal Z78.0 ; GERD without esophagitis K21.9 ; Bilateral hearing loss, unspecified hearing loss type H91.93 ; Screening for breast cancer Z12.31 and Encounter for immunization Z23 [facility] [place] [address] [place] [address] C [id number] [place] [id number] Aug, [facility] [place] [address] [place] [address] C [id number] [place] [id number] Jul, Primary insomnia F51.01 [facility] [place] [address] [place] [address] C [id number] [place] [id number] May, Acute non-recurrent maxillary sinusitis J01.00 ; Anxiety F41.9 and Primary insomnia F51.01 [facility] [place] [address] [place] [address] C [id number] [place] [id number] Mar, [facility] [place] [address] [place] [address] C [id number] [place] [id number] Nov, Hyperkalemia E87.5 and Prehypertension R03.0 [facility] [place] [address] [place] [address] C [id number] [place] [id number] Nov, Hyperkalemia E87.5 [facility] [place] [address] [place] [address] C [id number] [place] [id number] Nov, Prehypertension R03.0 ; Anxiety F41.9 ; Urge incontinence N39.41 and Seborrhea L21.9 [facility] [place] [address] [place] [address] C [id number] [place] [id number] Nov, Dyspnea R06.00 and Prehypertension R03.0 [facility] [place] [address] [place] [address] C [id number] [place] [id number] Nov, Dyspnea R06.00 ; Primary insomnia F51.01 and Prehypertension R03.0 [facility] [place] [address] [place] [address] C [id number] [place] [id number] 30 Rod, 2017 Prehypertension R03.0 ; Anxiety F41.9 ; Seasonal allergic rhinitis due to pollen J30.1 ; Screening for breast cancer Z12.39 ; Urge incontinence N39.41 ; Seborrhea L21.9 and Encounter for immunization Z23 [facility] [place] [address] [facility] [address] [id number] [place] [id number] 08 Aug, 2016 Vertigo R42 [facility] [place] [address] [place] [address] [address] [id number] [place] [id number] Aug, Acute non-recurrent frontal sinusitis J01.10 [facility] [place] [address] [place] [address] [address] [id number] [place] [id number] Jul, Subacute maxillary sinusitis J01.00 [facility] [place] [address] [place] [address] [address] [id number] [place] [phone] Jun, Anxiety F41.9 [facility] [place] [address] [place] [address] [address] [id number] [place] [id number] Jun, Anxiety F41.9 ; Incontinence R32 ; Primary insomnia F51.01 and Screening for breast cancer Z12.39 [facility] [place] [address] [place] [address] [address] [id number] [place] [id number] Dec, Chest pain, unspecified type R07.9 [facility] [place] [address] [place] [address] [address] [id number] [place] [id number] Nov, [facility] [place] [address] [place] [address] [address] [id number] [place] [id number] Nov, Reactive depression F32.9 ; Urge incontinence N39.41 and Allergic rhinitis, unspecified allergic rhinitis type J30.9 [facility] [place] [address] [place] [address] [address] [id number] [place] [id number] Nov, [facility] [place] [address] [facility] [address] [id number] [place] [id number] Nov, [facility] [place] [address] [place] [address] [address] [id number] [place] [id number] Nov, [facility] [place] [address] [place] [address] [address] [id number] [place] [id number] Nov, Reactive depression F32.9 ; Urge incontinence N39.41 ; Acute frontal sinusitis, recurrence not specified J01.10 and Cystitis N30.[address] C [id number] [place] [id number] Oct, Reactive depression F32.9 and Finger tendinitis M77.9 [facility] [place] [address] [place] [address] C [id number] [place] [id number] Aug, [facility] [place] [address] [place] [address] [id number] [place] [id number] Aug, Bronchitis J40 and Wheezing R06.[address] [id number] [place] [id number] Aug, Dyspnea R06.00 and Abdominal pain R10.[address] [id number] [place] [id number] Jul, Rib pain on right side R07.81 ; Depression F32.9 and Encounter for immunization Z23 [address] [id number] [place] [id number] Jun, [facility] [address] [facility] [id number] [address] Jun, [address] [id number] [place] [id number] May, [facility] [address] [facility] [id number] [address] May, IMMUNIZATIONS No Known Immunizations SOCIAL HISTORY Never Assessed REASON FOR VISIT PLAN OF CARE VITAL SIGNS MEDICATIONS Medication Instructions Dosage Frequency Start Date End Date Duration Status Fosamax 70 MG Orally once weekly in the morning with an 8 oz glass of water. No eating, lying down for 30 minutes. once weekly 1 tablet Aug, Active RESULTS Name Result Date Reference Range Ultrasound : Breast(s), Both 2017-09-17 PROCEDURES No Known procedures INSTRUCTIONS MEDICATIONS ADMINISTERED No Known Medications MEDICAL (GENERAL) HISTORY Type Description Date Medical History Reactive depression Medical History Urge incontinence Surgical History cholecystectomy Surgical History intubated Surgical History hysterectomy Surgical History right ankle had plate and pin Surgical History gall bladder Hospitalization History Stomach Issues 2015 Hospitalization History Surgery(s)/Childbirth(s)
--- OUTSIDE RECORDS SUMMARY | 2019-02-19 07:26 | XMS REPORT ---
Author Author [facility] [place] Address [address] [place] [address] Care Team Providers Care Group Home Manager Name Role Phone NATALEE DÍAZ Unavailable PROBLEMS Type Condition ICD9-CM Code CCD37-OW Code Onset Dates Condition Status SNOMED Code Assessment Screening for breast cancer Z12.39 Jun, Active 381103031 Assessment Incontinence R32 Jun, Active 67375086 Assessment Primary insomnia F51.01 Jun, Active 8692786 Problem Reactive depression F32.9 Active 63506288 Problem Urge incontinence N39.41 Active 96909080 Problem Abdominal pain, epigastric 789.06 Active 78103399 Assessment Anxiety F41.9 Jun, Active 37620843 Problem Encounter for immunization Z23 Active 699614266 Problem Other dyspnea and respiratory abnormalities 786.09 Active 975315039 ALLERGIES Substance Reaction Event Type Date Status Trimethoprim-Sulfamethoxazole hives Drug Allergy Jun, Active SOCIAL HISTORY No smoking Hx information available PLAN OF CARE VITAL SIGNS Height 63 in 2016-06-08 Weight 132.2 lbs 2016-06-08 Heart Rate 78 bpm 2016-06-08 Respiratory Rate 16 2016-06-08 BMI 23.42 kg/m2 2016-06-08 Blood pressure systolic 136 mmHg 2016-06-08 Blood pressure diastolic 80 mmHg 2016-06-08 MEDICATIONS Medication Instructions Dosage Frequency Start Date End Date Duration Status Cymbalta 60 mg Orally Once a day 1 capsule 24h Jun, 30 day(s) Active Zoloft 50 mg Orally Once a day 1 tablet daily 24h 30 days Active Myrbetriq 50 MG Orally Once a day 1 tablet 24h Jul, 30 days Active Multivitamin Adults 50+ Active Calcium + D3 600-200 MG-UNIT Active Cymbalta 30 MG Orally twice a day 1 capsule 12h Jun, 30 day(s) Active RESULTS No Results PROCEDURES Procedure Date Ordered Related Diagnosis Body Site [facility] VISIT ESTABLISHED PATIENT Jun 08, 2016 Office Visit, Est Pt., Level 2 Jun 08, 2016 IMMUNIZATIONS No Known Immunizations
--- OUTSIDE RECORDS SUMMARY | 2019-02-19 07:26 | XMS REPORT ---
Author Author NATALEE DÍAZ Organization eClinicalWorks Address Unknown Phone Unavailable Care Team Providers Care Table Cover Folder Name Role Phone NATALEE DÍAZ CP Unavailable Allergies, Adverse Reactions, Alerts Substance Reaction Event Type Trimethoprim-Sulfamethoxazole hives Drug Allergy Problems Problem Type Condition Code Onset Dates Condition Status Problem Urge incontinence N39.41 Active Problem Encounter for immunization Z23 Active Problem Reactive depression F32.9 Active Assessment Subacute maxillary sinusitis J01.00 Active Problem Other dyspnea and respiratory abnormalities 786.09 Active Problem Abdominal pain, epigastric 789.06 Active Medications Medication Code System Code Instructions Start Date End Date Status Dosage Calcium + D3 [facility] [address]-18 600-200 MG-UNIT Orally not defined Cymbalta [facility] [address]-07 30 MG Orally twice a day Jun 08, 2016 1 capsule Cymbalta [facility] [address]-76 60 mg Orally Once a day Jun 08, 2016 1 capsule Amoxicillin [facility] [address]-28 500 MG Orally every 12 hrs Jul 24, 2016 Aug 03, 2016 2 capsules Multivitamin Adults 50+ [facility] [address] Orally not defined Cymbalta [facility] [address]-80 60 mg Orally Once a day Jun 21, 2016 1 capsule Zoloft [facility] [address]-42 50 mg Orally Once a day 1 tablet daily Procedures Procedure Coding System Code Date [facility] VISIT ESTABLISHED PATIENT CPT-4 G0467 Jul 24, 2016 Office Visit, Est Pt., Level 3 CPT-4 87455 Jul 24, 2016 MEASURE BLOOD OXYGEN LEVEL CPT-4 78062 Jul 24, 2016 Vital Signs Date/Time: Jul 24, 2016 Cardiac Monitoring Heart Rate 84 bpm Weight 130.3 lbs Height 63 in BMI 23.08 Index Oximetry 94 % Blood Pressure Diastolic 84 mmHg Blood Pressure Systolic 130 mmHg Results No Known Results Summary Purpose eClinicalWorks Submission
--- OUTSIDE RECORDS SUMMARY | 2019-02-19 07:26 | XMS REPORT ---
Author Author CHARLEE ARIAS Organization eClinicalWorks Address Unknown Phone Unavailable Care Team Providers Care Electronic Gluing Machine Operator Name Role Phone CHARLEE ARIAS CP Unavailable Allergies, Adverse Reactions, Alerts Substance Reaction Event Type Trimethoprim-Sulfamethoxazole hives Drug Allergy Problems Problem Type Condition Code Onset Dates Condition Status Problem Other dyspnea and respiratory abnormalities 786.09 Active Problem Abdominal pain, epigastric 789.06 Active Problem Encounter for immunization Z23 Active Assessment Bronchitis J40 Active Assessment Wheezing R06.2 Active Medications Medication Code System Code Instructions Start Date End Date Status Dosage Lorazepam [facility] [address]-06 0.5 MG Orally 2 times a day PRN anxiety Sep 16, 2015 0.5 tablet Zithromax Tri-Simeon [facility] [address]-75 500 MG Orally Once a day Sep 16, 2015 1 tablet Procedures Procedure Coding System Code Date Office Visit, Est Pt., Level 3 CPT-4 82331 Sep 16, 2015 [facility] VISIT ESTABLISHED PATIENT CPT-4 G0467 Sep 16, 2015 Vital Signs Date/Time: Sep 16, 2015 Temperature 97.6 F Weight 137 lbs Height 63 in BMI 24.27 Index Blood Pressure Diastolic 80 mmHg Blood Pressure Systolic 142 mmHg Cardiac Monitoring Heart Rate 76 bpm Results No Known Results Summary Purpose eClinicalWorks Submission
--- OUTSIDE RECORDS SUMMARY | 2019-02-19 07:26 | XMS REPORT ---
Author Author NATALEE DÍAZ Organization eClinicalWorks Address Unknown Phone Unavailable Care Team Providers Care Store Receiver Name Role Phone NATALEE DÍAZ CP Unavailable Allergies, Adverse Reactions, Alerts Substance Reaction Event Type Trimethoprim-Sulfamethoxazole hives Drug Allergy Problems Problem Type Condition Code Onset Dates Condition Status Problem Urge incontinence N39.41 Active Problem Encounter for immunization Z23 Active Problem Reactive depression F32.9 Active Assessment Vertigo R42 Active Problem Other dyspnea and respiratory abnormalities 786.09 Active Problem Abdominal pain, epigastric 789.06 Active Medications Medication Code System Code Instructions Start Date End Date Status Dosage Doxycycline Hyclate [facility] [address]-46 100 MG Orally every 12 hrs Aug 03, 2016 Aug 13, 2016 1 capsule Multivitamin Adults 50+ [facility] [address] Orally not defined Meclizine HCl [facility] [address]-98 12.5 MG Orally every 8 hours prn veritgo--caution for dizziness Aug 08, 2016 2 tablets as needed Zoloft [facility] [address]-28 50 mg Orally Once a day 1 tablet daily Cymbalta [facility] [address]-27 60 mg Orally Once a day Jun 21, 2016 1 capsule Calcium + D3 [facility] [address]-28 600-200 MG-UNIT Orally not defined PredniSONE [facility] [address]-78 20 mg Orally with food or milk Once a day Aug 08, 2016 Aug 13, 2016 1 tablet Procedures Procedure Coding System Code Date [facility] VISIT ESTABLISHED PATIENT CPT-4 G0467 Aug 08, 2016 Office Visit, Est Pt., Level 4 CPT-4 35061 Aug 08, 2016 MEASURE BLOOD OXYGEN LEVEL CPT-4 09951 Aug 08, 2016 Vital Signs Date/Time: Aug 08, 2016 Cardiac Monitoring Heart Rate 94 bpm Weight 130.9 lbs Height 63 in BMI 23.19 Index Oximetry 97 % Blood Pressure Diastolic 82 mmHg Blood Pressure Systolic 128 mmHg Results No Known Results Summary Purpose eClinicalWorks Submission
--- OUTSIDE RECORDS SUMMARY | 2019-02-19 07:26 | XMS REPORT ---
Author Author NATALEE DÍAZ Organization eClinicalWorks Address Unknown Phone Unavailable Care Team Providers Care Kosher Sealer Name Role Phone NATALEE DÍAZ CP Unavailable Allergies, Adverse Reactions, Alerts Substance Reaction Event Type Trimethoprim-Sulfamethoxazole hives Drug Allergy Problems Problem Type Condition Code Onset Dates Condition Status Problem Urge incontinence N39.41 Active Problem Encounter for immunization Z23 Active Problem Reactive depression F32.9 Active Assessment Chest pain, unspecified type R07.9 Active Problem Other dyspnea and respiratory abnormalities 786.09 Active Problem Abdominal pain, epigastric 789.06 Active Medications Medication Code System Code Instructions Start Date End Date Status Dosage Multivitamin Adults 50+ [facility] [address] Orally not defined Zoloft [facility] [address]-63 50 MG Orally Once a day 1 tablet daily Myrbetriq [facility] [address]-82 25 MG Orally Once a day 1 tablet Trazodone HCl [facility] [address]-85 50 mg Orally Once a day 1 tablet at bedtime as needed Calcium + D3 [facility] [address]-57 600-200 MG-UNIT Orally not defined Claritin [facility] [address]-19 10 MG Orally Once a day December 03, 2015 April 01, 2016 1 tablet Procedures Procedure Coding System Code Date CHEST X-RAY CPT-4 73726 January 20, 2016 ELECTROCARDIOGRAM, TRACING CPT-4 48452 January 20, 2016 MEASURE BLOOD OXYGEN LEVEL CPT-4 51462 January 20, 2016 Office Visit, Est Pt., Level 3 CPT-4 13898 January 20, 2016 [facility] VISIT ESTABLISHED PATIENT CPT-4 G0467 January 20, 2016 Vital Signs Date/Time: January 20, 2016 Cardiac Monitoring Heart Rate 78 bpm Temperature 98.7 F Height 63 in Oximetry 94 % Blood Pressure Diastolic 74 mmHg Blood Pressure Systolic 140 mmHg Results Name Result Date Reference Range Unit Abnormality Flag Xray : Chest (IN HOUSE) EKG, TRACING (IN-HOUSE) Summary Purpose eClinicalWorks Submission
--- OUTSIDE RECORDS SUMMARY | 2019-02-19 07:26 | XMS REPORT ---
Author Author NATALEE DÍAZ [facility] [place] Address [address] [place] [address] Care Team Providers Care Knife Finisher Name Role Phone NATALEE DÍAZ Unavailable PROBLEMS Type Condition ICD9-CM Code [id number] Code Onset Dates Condition Status SNOMED Code Problem Other dyspnea and respiratory abnormalities 786.09 Active 982291161 Problem Abdominal pain, epigastric 789.06 Active 67250017 Problem Primary insomnia F51.01 Active 5797615 Problem Anxiety F41.9 Active 45397535 Problem Urge incontinence N39.41 Active 00845989 Problem Encounter for immunization Z23 Active 897517320 Problem Seasonal allergic rhinitis due to pollen J30.1 Active 71843007 Problem Reactive depression F32.9 Active 60664701 ALLERGIES No Information SOCIAL HISTORY Never Assessed PLAN OF CARE Activity Details Follow Up prn Reason: VITAL SIGNS MEDICATIONS No Known Medications RESULTS Name Result Date Reference Range CBC 2016-11-16 WBC 5.1 3.4-10.8 RBC 4.36 3.77-5.28 Hemoglobin 14.1 11.1-15.9 Hematocrit 44.2 34.0-46.6 MCV 101 79-97 MCH 32.3 26.6-33.0 MCHC 31.9 31.5-35.7 RDW 13.5 12.3-15.4 Platelets 336 150-379 Neutrophils 50 Lymphs 41 Monocytes 6 Eos 2 Basos 1 Immature Cells Neutrophils (Absolute) 2.6 1.4-7.0 Lymphs (Absolute) 2.1 0.7-3.1 Monocytes(Absolute) 0.3 0.1-0.9 Eos (Absolute) 0.1 0.0-0.4 Baso (Absolute) 0.0 0.0-0.2 Immature Granulocytes 0 Immature Grans (Abs) 0.0 0.0-0.1 NRBC Hematology Comments: LIPID PANEL 2016-11-16 Cholesterol, Total 259 100-199 Triglycerides 200 0-149 HDL Cholesterol 79 >39 VLDL Cholesterol Garret 40 5-40 LDL Cholesterol Calc 140 0-99 Comment: CMP 2016-11-16 Glucose, Serum 84 65-99 BUN 14 8-27 Creatinine, Serum 0.70 0.57-1.00 eGFR If NonAfricn Am 80 >59 eGFR If Africn Am 93 >59 BUN/Creatinine Ratio 20 11-26 Sodium, Serum 143 134-144 Potassium, Serum 5.7 3.5-5.2 Chloride, Serum 98 96-106 Carbon Dioxide, Total 27 18-29 Calcium, Serum 9.5 8.7-10.3 Protein, Total, Serum 6.8 6.0-8.5 Albumin, Serum 4.5 3.5-4.7 Globulin, Total 2.3 1.5-4.5 A/G Ratio 2.0 1.1-2.5 Bilirubin, Total 0.4 0.0-1.2 Alkaline Phosphatase, S 95 39-117 AST (SGOT) 19 0-40 ALT (SGPT) 13 0-32 PROCEDURES Procedure Date Ordered Result Body Site VENIPUNCT, ROUTINE* Nov 16, 2016 LAB NOT BILLED BY [facility] Nov 16, 2016 IMMUNIZATIONS No Known Immunizations MEDICAL (GENERAL) HISTORY Type Description Date Medical History Reactive depression Medical History Urge incontinence Surgical History cholecystectomy Surgical History intubated Surgical History hysterectomy Hospitalization History Stomach Issues 2015 Hospitalization History Surgery(s)/Childbirth(s)
--- OUTSIDE RECORDS SUMMARY | 2019-02-19 07:26 | XMS REPORT ---
Author Author [facility]AZ [facility] Address [address] [place] [address] Care Team Providers Care Wreath Maker Name Role Phone NATALEE DÍAZ Unavailable PROBLEMS Type Condition ICD9-CM Code [id number] Code Onset Dates Condition Status SNOMED Code Problem Other dyspnea and respiratory abnormalities 786.09 Active 868470143 Problem Abdominal pain, epigastric 789.06 Active 64192357 Problem Primary insomnia F51.01 Active 9162970 Problem Anxiety F41.9 Active 12879813 Problem Urge incontinence N39.41 Active 94644616 Problem Encounter for immunization Z23 Active 191771284 Problem Seasonal allergic rhinitis due to pollen J30.1 Active 52545611 Problem Reactive depression F32.9 Active 65924899 ALLERGIES No Information SOCIAL HISTORY Never Assessed PLAN OF CARE VITAL SIGNS MEDICATIONS No Known Medications RESULTS Name Result Date Reference Range [facility] 2016-11-23 Glucose, Serum 101 65-99 BUN 16 8-27 Creatinine, Serum 0.63 0.57-1.00 eGFR If NonAfricn Am 83 >59 eGFR If Africn Am 96 >59 BUN/Creatinine Ratio 25 11-26 Sodium, Serum 148 134-144 Potassium, Serum 6.1 3.5-5.2 Chloride, Serum 105 96-106 Carbon Dioxide, Total 26 18-29 Calcium, Serum 9.9 8.7-10.3 PROCEDURES Procedure Date Ordered Result Body Site VENIPUNCT, ROUTINE* Nov 23, 2016 IMMUNIZATIONS No Known Immunizations MEDICAL (GENERAL) HISTORY Type Description Date Medical History Reactive depression Medical History Urge incontinence Surgical History cholecystectomy Surgical History intubated Surgical History hysterectomy Hospitalization History Stomach Issues 2016 Hospitalization History Surgery(s)/Childbirth(s)
--- OUTSIDE RECORDS SUMMARY | 2019-02-19 07:26 | XMS REPORT ---
Author Author NATALEE DÍAZ [facility] Address [address] [place] [address] Care Team Providers Care Network Program Manager Name Role Phone NATALEE DÍAZ Unavailable PROBLEMS Type Condition ICD9-CM Code TTH44-JR Code Onset Dates Condition Status SNOMED Code Problem Reactive depression F32.9 Active 15438925 Problem Urge incontinence N39.41 Active 67990604 Problem Abdominal pain, epigastric 789.06 Active 90330556 Assessment Anxiety F41.9 Jun, Active 13155867 Problem Encounter for immunization Z23 Active 001228534 Problem Other dyspnea and respiratory abnormalities 786.09 Active 357905126 ALLERGIES No Known Allergies SOCIAL HISTORY No smoking Hx information available PLAN OF CARE VITAL SIGNS MEDICATIONS Medication Instructions Dosage Frequency Start Date End Date Duration Status Cymbalta 60 mg Orally Once a day 1 capsule 24h Jun, 30 day(s) Active RESULTS No Results PROCEDURES No Known procedures IMMUNIZATIONS No Known Immunizations
--- OUTSIDE RECORDS SUMMARY | 2019-02-19 07:26 | XMS REPORT ---
Author Author NATALEE DÍAZ [facility] Address [address] [place] [address] Care Team Providers Care Veterinary Parasitologist Name Role Phone NATALEE DÍAZ Unavailable PROBLEMS Type Condition ICD9-CM Code VIX04-EV Code Onset Dates Condition Status SNOMED Code Problem Encounter for immunization Z23 Active 981734687 Problem Reactive depression F32.9 Active 21144576 Problem Urge incontinence N39.41 Active 62185616 Problem Abdominal pain, epigastric 789.06 Active 74958499 Problem Other dyspnea and respiratory abnormalities 786.09 Active 888681035 Problem Age-related osteoporosis without current pathological fracture M81.0 Active 85954633 Problem GERD without esophagitis K21.9 Active 018596412 Problem Anxiety F41.9 Active 21358991 Problem Seasonal allergic rhinitis due to pollen J30.1 Active 52103294 Problem Bilateral hearing loss, unspecified hearing loss type H91.93 Active 67555267 Problem Primary insomnia F51.01 Active 9966084 ALLERGIES No Information ENCOUNTERS Encounter Location Date Diagnosis [address] [id number] [place] [id number] Nov, [address] [id number] [place] [id number] Aug, Breast mass N63.0 and Age-related osteoporosis without current pathological fracture M81.[address] [id number] [place] [id number] Aug, Traumatic injury of head, initial encounter S09.90XA ; Facial skin lesion L98.9 ; Primary insomnia F51.01 ; Post-menopausal Z78.0 ; GERD without esophagitis K21.9 ; Bilateral hearing loss, unspecified hearing loss type H91.93 ; Screening for breast cancer Z12.31 and Encounter for immunization Z23 [address] [id number] [place] [id number] Aug, [facility] [place] [address] [place] [address] [address] [id number] [place], [place] [id number] Jul, Primary insomnia F51.01 [facility] [place] [address] [place] [address] [address] [id number] [place] [id number] May, Acute non-recurrent maxillary sinusitis J01.00 ; Anxiety F41.9 and Primary insomnia F51.01 [facility] [place] [address] [place] [address] [address] [id number] [place] [id number] Mar, [facility] [place] [address] [place] [address] [address] [id number] [place] [id number] Nov, Prehypertension R03.0 and Hyperkalemia E87.5 [facility] [place] [address] [place] [address] [address] [id number] [place] [id number] Nov, Hyperkalemia E87.5 [facility] [place] [address] [place] [address] [address] [id number] [place] [id number] Nov, Prehypertension R03.0 ; Anxiety F41.9 ; Urge incontinence N39.41 and Seborrhea L21.9 [facility] [place] [address] [place] [address] [address] [id number] [place] [id number] Nov, Dyspnea R06.00 and Prehypertension R03.0 [facility] [place] [address] [place] [address] [address] [id number] [place] [id number] Nov, Dyspnea R06.00 ; Primary insomnia F51.01 and Prehypertension R03.0 [facility] [place] [address] [place] [address] [address] [id number] [place], [place] [id number] Oct, Prehypertension R03.0 ; Anxiety F41.9 ; Seasonal allergic rhinitis due to pollen J30.1 ; Screening for breast cancer Z12.39 ; Urge incontinence N39.41 ; Seborrhea L21.9 and Encounter for immunization Z23 [facility] [place] [address] [place] [address] [address] [id number] [place] [id number] Aug, Vertigo R42 [facility] [place] [address] [place] [address] [address] [id number] [place] [id number] Aug, Acute non-recurrent frontal sinusitis J01.10 [facility] [place] [address] [facility] [address] [id number] [place] [id number] Jul, Subacute maxillary sinusitis J01.00 [facility] [place] [address] [place] [address] [address] [id number] [place] [id number] Jun, Anxiety F41.9 [facility] [place] [address] [place] [address] [address] [id number] [place] [id number] Jun, Anxiety F41.9 ; Incontinence R32 ; Primary insomnia F51.01 and Screening for breast cancer Z12.39 [facility] [place] [address] [place] [address] [address] [id number] [place] [id number] Dec, Chest pain, unspecified type R07.9 [facility] [place] [address] [place] [address] [address] [id number] [place] [id number] Nov, [facility] [place] [address] [place] [address] [address] [id number] [place] [id number] Nov, Reactive depression F32.9 ; Urge incontinence N39.41 and Allergic rhinitis, unspecified allergic rhinitis type J30.9 [facility] [place] [address] [place] [address] [address] [id number] [place] [id number] Nov, [facility] [place] [address] [place] [address] [address] [id number] [place] [id number] Nov, [facility] [place] [address] [place] [address] [address] [id number] [place] [id number] Nov, [facility] [place] [address] [place] [address] [address] [id number] [place] [id number] Nov, Reactive depression F32.9 ; Urge incontinence N39.41 ; Acute frontal sinusitis, recurrence not specified J01.10 and Cystitis N30.90 [facility] [place] [address] [place] [address] [address] [id number] [place] [id number] Oct, Reactive depression F32.9 and Finger tendinitis M77.9 [facility] [place] [address] [place] [address] [address] [id number] [place] [id number] Aug, [facility] [place] [address] [facility] [address] [id number] [place] [id number] Aug, Bronchitis J40 and Wheezing R06.2 [facility] [address] [place] [address] [id number] [place] [id number] Aug, Dyspnea R06.00 and Abdominal pain R10.9 [facility] [address] [place] [address] [id number] [place] [id number] Jul, Rib pain on right side R07.81 ; Depression F32.9 and Encounter for immunization Z23 [address] [id number] [place] [id number] Jun, [facility] [address] [facility] [id number] [address] Jun, [address] [id number] [place] [id number] May, [facility] [address] [facility] [id number] [address] May, IMMUNIZATIONS No Known Immunizations SOCIAL HISTORY Never Assessed REASON FOR VISIT Requests return call PLAN OF CARE VITAL SIGNS MEDICATIONS Medication Instructions Dosage Frequency Start Date End Date Duration Status Alprazolam 0.5 MG Orally 2 times a day prn anxiety 1 tablet Jul, Active RESULTS No Results PROCEDURES No Known procedures INSTRUCTIONS MEDICATIONS ADMINISTERED No Known Medications MEDICAL (GENERAL) HISTORY Type Description Date Medical History Reactive depression Medical History Urge incontinence Surgical History cholecystectomy Surgical History intubated Surgical History hysterectomy Hospitalization History Stomach Issues 2015 Hospitalization History Surgery(s)/Childbirth(s)
--- OUTSIDE RECORDS SUMMARY | 2019-02-19 07:26 | XMS REPORT ---
Author Author NATALEE DÍAZ Organization [employer] Address Unknown Phone Unavailable Care Team Providers Care Transformation Architect Name Role Phone NATALEE DÍAZ CP Unavailable Allergies, Adverse Reactions, Alerts Substance Reaction Event Type Trimethoprim-Sulfamethoxazole hives Drug Allergy Problems Problem Type Condition Code Onset Dates Condition Status Problem Other dyspnea and respiratory abnormalities 786.09 Active Problem Abdominal pain, epigastric 789.06 Active Problem Encounter for immunization Z23 Active Assessment Reactive depression F32.9 Active Assessment Finger tendinitis M77.9 Active Medications Medication Code System Code Instructions Start Date End Date Status Dosage Zoloft [facility] [address]-38 25 MG Orally Once a day Oct 29, 2015 1 tablet daily Lorazepam [facility] [address]-44 0.5 MG Orally in the AM and 1 tablet at bedtime Sep 16, 2015 Take 0.5 tablet Trazodone HCl [facility] [address]-37 50 MG Orally Once a day Oct 29, 2015 1 tablet at bedtime as needed Procedures Procedure Coding System Code Date [facility] VISIT ESTABLISHED PATIENT CPT-4 G0467 Oct 29, 2015 Office Visit, Est Pt., Level 3 CPT-4 22668 Oct 29, 2015 APPLY FOREARM SPLINT CPT-4 94494 Oct 29, 2015 Vital Signs Date/Time: Oct 29, 2015 Temperature 98.2 F Weight 136.1 lbs Height 63 in BMI 24.11 Index Blood Pressure Diastolic 94 mmHg Blood Pressure Systolic 140 mmHg Cardiac Monitoring Heart Rate 72 bpm Results No Known Results Summary Purpose [employer] Submission
--- OUTSIDE RECORDS SUMMARY | 2019-02-19 07:27 | XMS REPORT | Continuity of Care Document ---
Author Organization Unknown Address Unknown Allergies There is no data. Medications There is no data. Problems Date Dx Coded Attending Type Code Diagnosis Diagnosed By 05/14/2014 LOREE MALLORY MD 786.09 DYSPNEA 05/14/2014 LOREE MALLORY MD 789.06 ABDOMINAL PAIN EPIGASTRIC 05/14/2014 LOREE MALLORY MD 786.09 DYSPNEA 05/14/2014 LOREE MALLORY MD 789.06 ABDOMINAL PAIN EPIGASTRIC 05/14/2014 LOREE MALLORY MD 786.09 DYSPNEA 05/14/2014 LOREE MALLORY MD 789.06 ABDOMINAL PAIN EPIGASTRIC 01/14/2015 LOREE MALLORY MD 788.41 URINARY FREQUENCY 01/14/2015 LOREE MALLORY MD 788.63 URINARY URGENCY Procedures Code [place] [address] ROUTINE VENIPUNCTURE 05/14/2014 [id number] GFR CALC (RESULT ONLY) 05/14/2014 61169 CMP 05/14/2014 84440 CBC 05/14/2014 77174 XRAY CHEST 2 VIEW 05/16/[address] PELVIS W/O & W/CONTRAST 05/16/[address] ABDOMEN W/ AND W/O CONTRAST 05/16/2014 [facility] 06/11/2014 Results There is no data. Encounters ACCT No. Visit Date/Time Discharge Status Pt. Type Provider Facility Loc./Unit Complaint [id number] 01/14/2015 13:43:00 01/14/2015 23:59:59 [facility] Outpatient LOREE MALLORY MD [id number] 06/03/2014 09:24:00 06/03/2014 23:59:59 [facility] Outpatient LOREE MALLORY MD [id number] 05/14/2014 10:32:00 05/14/2014 23:59:59 [place] [id number] 01/31/2019 15:40:00 01/31/2019 23:59:59 [facility]
[2019-02-19] MEDS ORDERED: LACTATED RINGERS 1,000 ML IV STA (07:38)
[2019-02-19 07:42] VITALS: BP 153/74
[2019-02-19] MEDS ORDERED: proPOfol 200 MG/20 ML (DIPRIVAN) VIAL IV ONE (08:46)
[2019-02-19] MEDS ORDERED: MIDAZOLAM 2 MG/2 ML (VERSED) VIAL ONE (08:46)
[2019-02-19] MEDS ORDERED: SEVOFLURANE (ULTANE) 15 ML INHAL SOLN ONE (08:46)
[2019-02-19] MEDS ORDERED: LIDOCAINE PF 2% 5 ML (XYLOCAINE) VIAL ONE (08:47)
[2019-02-19] MEDS ORDERED: ROCURONIUM 10 MG/ML 5 ML SYRINGE IV ONE (08:47)
[2019-02-19] MEDS ORDERED: NEOSTIGMINE 1 MG/ML 5 ML SYRINGE ONE (09:41)
[2019-02-19] MEDS ORDERED: GLYCOPYRROLATE 0.2 MG/ML (ROBINUL) 2 ML VIAL ONE (09:41)
--- NOTE | 2019-02-19 09:54 | Pulmonary Procedures ---
Pulmonary Procedures Date of Procedure Date of Service: February 19, 2019 Bronch Bronchoscopy with fluoroscopy brush of mainstem sarah, LLL bronchoalveolar lavage (BAL), endobronchial bilaateral washes and, LLL transbronchial brushes. EBUS was used to US the mediastinum however no pathologically enlarged lymph nodes observed to bx. Preop DX LLL lung mass Postop DX: same Complications: none After informed consent obtained and formal time out pt was sedated per anesthesia. Bronchoscope was advanced through the ET tube. 1% lidocaine was used to anesthetize sarah, and left/right main stem bronchus. An anatomical tour was undertaken down to the segmental bronchi bilaterally. No endobronchial lesions noted.Bronchoscopy with fluoroscopy brush of mainstem sarah, LLL bronchoalveolar lavage (BAL), endobronchial bilateral washes and, LLL transbronchial brushes. EBUS was used to US the mediastinum however no pathologically enlarged lymph nodes observed to bx. Pt tolerated procedure well. No complications noted. Stat CXR is pending. SYLWIA PIZANO DO February 19, 2019 09:54
--- NOTE | 2019-02-19 10:36 | Diagnostic Imaging Report ---
INDICATION: Status post bronchoscopy. Time of exam 10:24 a.m. FINDINGS: No pneumothorax is identified, status post bronchoscopy. There may be some minimal infiltrate or atelectasis in the left base. There is no effusion. IMPRESSION: No evidence of pneumothorax, status post bronchoscopy. Dictated by: Dictated on workstation # [id number]
[2019-02-19 10:55] VITALS: BP 133/66
[2019-02-19 11:25] VITALS: BP 139/70
--- NOTE | 2019-02-19 12:09 | Diagnostic Imaging Report ---
Indication: Fluoroscopy for bronchoscopy. Fluoroscopy was provided for Dr. Gan during bronchoscopy. 7 seconds of fluoroscopy was utilized. Impression: Fluoroscopy during bronchoscopy. Dictated by: Dictated on workstation # [id number]
--- NOTE | 2019-02-19 12:37 | Anesthesia-General Post-Op ---
MAC Patient Condition Mental Status/LOC: Same as Preop Cardiovascular: Satisfactory Nausea/Vomiting: Absent Respiratory: Satisfactory Pain: Controlled Complications: Absent Post Op Complications Complications None Follow Up Care/Instructions Patient Instructions None needed. Anesthesiology Discharge Order Discharge Order Patient is doing well, no complaints, stable vital signs, no apparent adverse anesthesia problems. No complications reported per nursing. PAYTON JACKSON CRNA February 19, 2019 12:37
== END 2019-02-19 11:40 | disposition home or self-care (01) ==
LOC: ENDO 06:46
PROVIDERS: ATTEND Internal Medicine Critical Care Medicine
DX: R19.8 Other specified symptoms and signs involving the digestive system and abdomen (principal); J44.9 Chronic obstructive pulmonary disease, unspecified; J30.9 Allergic rhinitis, unspecified; R63.4 Abnormal weight loss; R05 Cough; Z87.891 Personal history of nicotine dependence; Z99.81 Dependence on supplemental oxygen; Z79.899 Other long term (current) drug therapy
CPT/HCPCS: 71045; 87015; 87070; 87101; 87116; 87205; 87206; 94640

== ENCOUNTER → 2019-03-18 | Outpatient (CLI) | payer MEDICARE ==
--- NOTE | 2019-03-18 14:26 | Diagnostic Imaging Report ---
INDICATION: Lung nodule. This study is performed for further evaluation. TECHNIQUE: Serum blood glucose level at the time of injection was 118 mg/dL. The patient was administered 13.3 mCi of F18 FDG intravenously in the left antecubital region and PET imaging from the top of skull to mid thighs was performed. In addition, noncontrast CT was performed for attenuation correction and anatomic correlation. COMPARISON: No prior PET study is available for comparison. Comparison is made with the recent CT chest from 02/10/2019. FINDINGS: There is symmetric activity throughout the brain. Soft tissues of the neck are unremarkable. No mediastinal or hilar hypermetabolism is seen. No pulmonary parenchymal abnormality is seen. Specifically, the nodule noted on recent CT in the left lower lobe does not show FDG avidity. Physiologic activity in the GI and tracts of the abdomen and pelvis is seen. No suspicious hypermetabolism is identified. IMPRESSION: Unremarkable PET/CT study. The left lower lobe pulmonary nodule does not show FDG avidity. Even so, follow-up CT chest in 6-12 months is recommended to confirm stability. Dictated by: Dictated on workstation # [id number]
== END ==
LOC: RAD 10:13
PROVIDERS: ATTEND Internal Medicine Critical Care Medicine
DX: R91.8 Other nonspecific abnormal finding of lung field (principal)